=== PATIENT | male | born 1965 | race Caucasian/White ===

== ENCOUNTER 2019-09-14 09:48 | Outpatient (CLI) | payer OTHER, SELFPAY ==
[2019-09-14 10:29] LABS: Basophils Absolute Auto 0.1 K/mm3 (0.0-0.1); Eosinophils Absolute Auto 0.1 K/mm3 (0-0.3); Eosinophils Percent Auto 1.8 % (0-4.4); Hematocrit 50.9 % (42.0-52.0); Hemoglobin 16.9 g/dL (14.0-18.0); Immature Granulocyte Absolute 0.02 K/mm3 (0.00-0.031); Immature Granulocyte Percent A 0.4 % (0-0.5); Lymphocytes Absolute Auto 1.27 K/mm3 (0.9-3.2); Lymphocytes Percent Auto 24.9 % (18.3-44.2); Mean Corpuscular HGB Conc 33.2 g/dl (32-36); Mean Corpuscular Hemoglobin 29.4 pg (26-34); Mean Corpuscular Volume 88.5 fl (80-100); Mean Platelet Volume 9.7 fl (7.4-10.4); Monocytes Absolute Auto 0.4 K/mm3 (0.1-0.6); Monocytes Percent Auto 8.2 % (2.6-8.5); Neutrophils Absolute Auto 3.3 K/mm3 (1.3-6.7); Neutrophils Percent Auto 63.7 % (45.5-73.1); Platelet Count Result 194 k/mm3 (150-375); Red Blood Count 5.75 M/mm3 (4.6-6.20); Red Cell Distribution Width 12.9 % (11.5-14.5); White Blood Count 5.1 K/mm3 (4.5-10.0)
[2019-09-14 10:43] LABS: Alanine Aminotransferase 38 U/L (4-50); Albumin Level 4.3 g/dL (3.5-5.1); Alkaline Phosphatase 90 U/L (38-126); Aspartate Amino Transferase 25 U/L (17-59); Bilirubin,Total 0.6 mg/dL (0.2-1.3); Blood Urea Nitrogen 10 mg/dL (9-20); Carbon Dioxide 27 mmol/L (22-30); Chloride 106 mmol/L (98-107); Cholesterol 182 mg/dL (0-200); Estimated Glomerular Filt Rate > 60; Glucose 94 mg/dL (75-110); HDL Direct 36 mg/dL; Potassium 4.3 mmol/L (3.4-5.0); Sodium 139 mmol/L (137-145); Triglycerides 146 mg/dL (<150); Uric Acid 5.8 mg/dL (3.5-8.5)
[2019-09-14 10:54] LABS: LDL Cholesterol Direct 125 mg/dL
== END 2019-09-14 09:49 | disposition home or self-care (01) ==
PROVIDERS: PCP Family Medicine; Visit Provider Family Medicine
DX: I10 Essential (primary) hypertension (principal); E78.2 Mixed hyperlipidemia; Z12.5 Encounter for screening for malignant neoplasm of prostate
CPT/HCPCS: 36415; 80053; 80061; 84153; 84439; 84443; 84480; 84550; 85025; G0103

== ENCOUNTER 2019-12-09 14:58 | Emergency (ER) | payer OTHER, SELFPAY ==
[2019-12-09 15:11] VITALS: BP 132/94; PULSE 65; RESP 20; TEMP 36.6; O2SAT 97
--- NOTE | 2019-12-09 15:17 | ED.EAR ---
HPI - Ear Problem General Chief complaint: Ear Stated complaint: ear pain Time Seen by Provider: 12/09/19 15:02 Source: patient Mode of arrival: ambulatory Limitations: no limitations History of Present Illness HPI Narrative: 53-year-old male presents to [facility] with complaints of right ear pain since this morning. Patient reports history of ear infections. Patient denies ear drainage, cough, runny nose, nasal congestion, shortness of breath, wheezing, fever, bites, chills, nausea, vomiting or diarrhea. Patient denies sick contacts. Patient denies recent travel. MD Complaint: ear pain Location: right ear Duration: constant Exacerbating factors: nothing Discharge from ear: Reports no Treatment prior to arrival: none Related Data Home Medications Medication Instructions Recorded Confirmed atorvastatin 10 mg PO DAILY 12/09/19 12/09/19 metoprolol succinate 50 mg PO DAILY 12/09/19 12/09/19 Allergies Allergy/AdvReac Type Severity Reaction Status Date / Time No Known Allergies Allergy Unknown Verified 12/09/19 15:13 Review of Systems Review of Systems: All systems reviewed & are unremarkable except as noted in HPI and below Constitutional: Constitutional: Denies chills, Denies fatigue, Denies fever(s) and Denies weakness ENT: Denies dysphagia, Denies dizziness, Denies epistaxis, Denies nasal congestion and Denies sore throat Comments: right ear pain Cardiovascular: Cardiovascular: Denies chest pain, Denies rapid heart rate, Denies radiating jaw, neck or arm pain and Denies slow heart rate Respiratory: Respiratory: Denies chest congestion, Denies cough, Denies dyspnea and Denies wheezing Gastrointestinal: Gastrointestinal: Denies abdominal pain, Denies constipation, Denies diarrhea, Denies nausea and Denies vomiting Musculoskeletal: Musculoskeletal: Denies back pain Neurologic: Denies vertigo, Denies focal weakness and Denies numbness Endocrine: Endocrine: Denies fatigue [facility] Past Medical History Medical History (Updated 12/09/19 @ 15:22 by Blaire Valderrama APRN) Hypercholesteremia Hypertension Family History Family History Mother Hypertension Social History Social History Smoking status: Never smoker Exam Const: General: healthy appearing and no acute distress Orientation/consciousness: patient oriented x3 HENMT: Ears: external ears normal and TM abnormal bulging on the right and with fluid behind the TM on the right General nose exam: Normal nares present Face and sinus: normal facial exam Mouth: Yes Normal oral and palatal mucosa present and Yes moist mucous membranes Teeth and gingiva: dentition normal Throat: uvula midline Neck: Neck: normal visual inspection Resp: Effort & Inspection: normal respiratory effort Auscultation: clear to auscultation bilaterally Cardio: Rate: regular rate, not bradycardic and not tachycardic Rhythm: regular rhythm and regular rhythm Skin: General skin exam: normal color Rashes: no rashes Wounds: no wounds Neuro: General: patient oriented x3, moves all extremities and no meningeal signs Extrem: General: normal to inspection Psych: Mental Status: mental status grossly normal Affect: normal affect Attitude: cooperative Thought content: Yes Normal thought content present Course Vital Signs Vital signs: Vital Signs Temperature 36.6 C 12/09/19 15:11 Pulse Rate 65 12/09/19 15:11 Respiratory Rate 12/09/19 15:11 Blood Pressure 132/94 H 12/09/19 15:11 Pulse Oximetry 97 12/09/19 15:11 Temperature 36.6 C 12/09/19 15:11 Pulse Rate 65 12/09/19 15:11 Respiratory Rate 20 12/09/19 15:11 Blood Pressure 132/94 H 12/09/19 15:11 Pulse Oximetry 97 12/09/19 15:11 Medical Decision Making MDM Narrative Medical decision making narrative: Patient agrees to use [id number] Flonase daily. Patient agree
== END 2019-12-09 15:29 | disposition home or self-care (01) ==
PROVIDERS: Emergency Provider Nurse Practitioner Family; PCP Family Medicine
DX: H66.91 Otitis media, unspecified, right ear (principal); E78.00 Pure hypercholesterolemia, unspecified; I10 Essential (primary) hypertension
CPT/HCPCS: 99213; G0463

== ENCOUNTER 2020-02-23 10:21 | Emergency (ER) | payer OTHER, SELFPAY ==
[2020-02-23 10:30] VITALS: BP 153/97; PULSE 59; RESP 18; TEMP 36.8; O2SAT 99
--- NOTE | 2020-02-23 10:48 | ED.EAR ---
HPI - Ear Problem General Chief complaint: Ear Stated complaint: ear pain Source: patient Mode of arrival: ambulatory Limitations: no limitations History of Present Illness HPI Narrative: Patient is a 54-year-old male who presents complaining of left ear pain. Patient reports left ear pain x3 days. Denies taking any [id number] medications at this time. Patient reports multiple ear infections in the past few years. He has not seen ENT as of this time. Related Data Home Medications Medication Instructions Recorded Confirmed atorvastatin 10 mg PO DAILY 12/09/19 02/23/20 metoprolol succinate 50 mg PO DAILY 12/09/19 02/23/20 Allergies Allergy/AdvReac Type Severity Reaction Status Date / Time No Known Allergies Allergy Unknown Verified 12/09/19 15:13 Review of Systems Review of Systems: Narrative: CONSTITUTIONAL: Denies fever, chills, or sweats. EYES: Denies visual changes, redness, or discharge. ENT: Left ear pain CARDIOVASCULAR: Denies chest pain, palpitations, or edema. RESPIRATORY: Denies cough or dyspnea. GASTROINTESTINAL: Denies abdominal pain, nausea, vomiting, or diarrhea. GENITOURINARY: Denies dysuria or hematuria. SKIN: Denies rash or itching. MUSCULOSKELETAL: Denies back pain, joint pain, or myalgia. NEUROLOGIC: Denies headache, numbness, dizziness, or weakness. PSYCHIATRIC: Denies anxiety or depression. PMFSH Past Medical History Medical History Hypercholesteremia Hypertension Family History Family History Mother Hypertension Social History Social History Smoking status: Never smoker Gender identity (if verbalized by the patient): Male Exam Narrative: Exam Narrative: GENERAL: Well-appearing, well-nourished, and in no acute distress. HEAD: Normocephalic, atraumatic. EYES:No redness or drainage. Conjunctiva are normal. ENT: Mucous membranes pink and moist. Nares clear. Left TM cloudy, bulging, injected, right TM normal. Throat normal. Uvula midline. NECK: AROM. Supple. No lymphadenopathy. CHEST: No respiratory distress. EXTREMITIES: Normal range of motion. SKIN: Warm, dry, no rash. NEURO: No focal deficits. Alert and oriented x3. Gait steady. PSYCH: Normal affect. No signs of depression or anxiety. Course Vital Signs Vital signs: Vital Signs Temperature 36.8 C 02/23/20 10:30 Pulse Rate 59 L 02/23/20 10:30 Respiratory Rate 18 02/23/20 10:30 Blood Pressure 153/97 H 02/23/20 10:30 Pulse Oximetry 99 02/23/20 10:30 Temperature 36.8 C 02/23/20 10:30 Pulse Rate 59 L 02/23/20 10:30 Respiratory Rate 18 02/23/20 10:30 Blood Pressure 153/97 H 02/23/20 10:30 Pulse Oximetry 99 02/23/20 10:30 Medical Decision Making MDM Narrative Medical decision making narrative: Patient has left otitis media. Started on amoxicillin at this time. Patient also instructed to take Flonase and [id number] allergy relief as well. Discussed with patient follow-up with ENT as he has had frequent ear infections in the past few years. Patient is stable for discharge to home with outpatient follow-up as directed Differential Diagnosis Differential Diagnosis: Otitis media, otitis externa, cerumen impaction, URI Medical Records Medical records reviewed: Yes I reviewed the patient's medical records. Vital Signs Vital Signs: Vital Signs Temperature 36.8 C 02/23/20 10:30 Pulse Rate 59 L 02/23/20 10:30 Respiratory Rate 18 02/23/20 10:30 Blood Pressure 153/97 H 02/23/20 10:30 Pulse Oximetry 99 02/23/20 10:30 Temperature 36.8 C 02/23/20 10:30 Pulse Rate 59 L 02/23/20 10:30 Respiratory Rate 18 02/23/20 10:30 Blood Pressure 153/97 H 02/23/20 10:30 Pulse Oximetry 99 02/23/20 10:30 Reviewed. Patient has been instructed to follow-up with his PCP regarding his blood pressure
== END 2020-02-23 10:53 | disposition home or self-care (01) ==
PROVIDERS: Emergency Provider Nurse Practitioner; PCP Family Medicine
DX: H66.92 Otitis media, unspecified, left ear (principal); E78.00 Pure hypercholesterolemia, unspecified; I10 Essential (primary) hypertension
CPT/HCPCS: 99213; G0463

== ENCOUNTER 2021-01-17 10:40 | Outpatient (CLI) | payer OTHER, SELFPAY ==
[2021-01-17 11:38] LABS: Basophils Absolute Auto 0.1 K/mm3 (0.0-0.1); Basophils Percent Auto 1.1 % (0.2-1.2); Eosinophils Absolute Auto 0.1 K/mm3 (0-0.3); Eosinophils Percent Auto 1.5 % (0-4.4); Hematocrit 51.4 % (42.0-52.0); Hemoglobin 17.3 g/dL (14.0-18.0); Immature Granulocyte Absolute 0.05 K/mm3 (0.00-0.031); Immature Granulocyte Percent A 0.8 % (0-0.5); Lymphocytes Absolute Auto 1.59 K/mm3 (0.9-3.2); Lymphocytes Percent Auto 24.4 % (18.3-44.2); Mean Corpuscular HGB Conc 33.7 g/dl (32-36); Mean Corpuscular Volume 89.1 fl (80-100); Monocytes Absolute Auto 0.5 K/mm3 (0.1-0.6); Monocytes Percent Auto 7.2 % (2.6-8.5); Neutrophils Absolute Auto 4.2 K/mm3 (1.3-6.7); Platelet Count Result 218 k/mm3 (150-375); Red Blood Count 5.77 M/mm3 (4.6-6.20); White Blood Count 6.5 K/mm3 (4.5-10.0)
[2021-01-17 11:53] LABS: Alanine Aminotransferase 66 U/L (4-50); Albumin Level 4.2 g/dL (3.5-5.1); Alkaline Phosphatase 92 U/L (38-126); Anion Gap 6 mmol/L (8-16); Aspartate Amino Transferase 28 U/L (17-59); Blood Urea Nitrogen 14 mg/dL (9-20); Calcium 9.2 mg/dL (8.4-10.2); Carbon Dioxide 28 mmol/L (22-30); Chloride 106 mmol/L (98-107); Cholesterol 182 mg/dL (0-200); Estimated Glomerular Filt Rate > 60; Glucose 92 mg/dL (65-110); HDL Direct 38 mg/dL; Potassium 4.7 mmol/L (3.4-5.0); Sodium 140 mmol/L (137-145); Triglycerides 182 mg/dL (<150); Uric Acid 6.8 mg/dL (3.5-8.5)
[2021-01-17 12:05] LABS: LDL Cholesterol Direct 115 mg/dL
[2021-01-17 12:25] LABS: Prostate Specific Antigen 1.6 ng/mL (< OR = 4.0)
== END 2021-01-17 10:41 | disposition home or self-care (01) ==
LOC: ANHLAB 10:42
PROVIDERS: PCP Family Medicine; Visit Provider Family Medicine
DX: Z12.5 Encounter for screening for malignant neoplasm of prostate (principal); E78.2 Mixed hyperlipidemia; F41.9 Anxiety disorder, unspecified
CPT/HCPCS: 36415; 80053; 80061; 84153; 84443; 84550; 85025; G0103

== ENCOUNTER 2021-03-06 08:32 | Outpatient (CLI) | payer OTHER, SELFPAY ==
[2021-03-06 09:16] LABS: Alanine Aminotransferase 49 U/L (4-50); Albumin Level 4.2 g/dL (3.5-5.1); Alkaline Phosphatase 92 U/L (38-126); Aspartate Amino Transferase 27 U/L (17-59); Bilirubin,Total 0.9 mg/dL (0.2-1.3)
== END 2021-03-06 08:33 | disposition home or self-care (01) ==
PROVIDERS: PCP Family Medicine; Visit Provider Family Medicine
DX: R74.01 Elevation of levels of liver transaminase levels (principal)
CPT/HCPCS: 36415; 80076

== ENCOUNTER 2021-07-25 16:40 | Emergency (ER) | payer OTHER, SELFPAY ==
[2021-07-25 16:47] VITALS: BP 122/86; PULSE 55; RESP 16; TEMP 36.2; O2SAT 98
--- NOTE | 2021-07-25 16:49 | ED.EAR ---
HPI - Ear Problem General Chief complaint: Ear Stated complaint: Rt Ear Pain Time Seen by Provider: 07/25/21 16:51 Source: patient Mode of arrival: ambulatory Limitations: no limitations History of Present Illness HPI Narrative: 55-year-old male presented complaint of right ear pain for 3 days. He states the pain is sharp and stabbing, intermittent, rating 8 out of 10 when it does occur. He denies associated dizziness, tinnitus, dental pain, pain with swallowing, sinus pressure or congestion, fevers or chills. Endorses a history of recurrent ear infections as an adult, he has seen an ENT specialist. Last infection was approximately 6 months ago. He has taken Tylenol and ibuprofen for pain. He endorses about a week ago his left ear felt similar pain but resolved on its own after couple of days. MD Complaint: ear pain Related Data Home Medications Medication Instructions Recorded Confirmed atorvastatin 10 mg PO DAILY 12/09/19 07/25/21 metoprolol succinate 50 mg PO DAILY 12/09/19 07/25/21 Allergies Allergy/AdvReac Type Severity Reaction Status Date / Time No Known Allergies Allergy Unknown Verified 07/25/21 16:44 Review of Systems Review of Systems: CONSTITUTIONAL: Denies malaise, chills, or fever. EYES: Denies visual changes, redness, or discharge. ENT: Denies rhinorrhea, congestion, sinus pain, and sore throat. Reports ear pain CARDIOVASCULAR: Denies chest pain, palpitations, or edema. RESPIRATORY: Denies cough or dyspnea. GASTROINTESTINAL: Denies abdominal pain, nausea, vomiting, diarrhea SKIN: Denies rash or itching. MUSCULOSKELETAL: Denies myalgia. NEUROLOGIC: Denies headache. All systems reviewed & are unremarkable except as noted in HPI and below PMFSH Past Medical History Medical History Hypercholesteremia Hypertension Family History Family History Mother Hypertension Social History Social History Smoking status: Never smoker Gender identity (if verbalized by the patient): Male Comments At time of signature, agree with nursing past medical, surgical, social and family history. There is no relevant family history pertinent to the presenting complaint Exam Narrative: GENERAL: Well-appearing HEAD: Normocephalic EYES: conjunctivae clear ENT: Nares clear. Mucous membranes moist. TMs pearly haskins with normal light reflex bilaterally, no erythema or purulence; no tragal or eustachian tube tenderness Oropharynx not erythematous without lesions. No lymphadenopathy. CHEST: Clear to auscultation, breath sounds equal. No wheezing, rhonchi, rales, or stridor. HEART: Regular rate and rhythm. No murmur heard. SKIN: Warm, dry, no rash. NEURO: Alert and oriented x3. PSYCH: Normal mood and affect Course Course Emergency Course: Patient is aware of diagnosis, understands and agrees to treatment plan. Anticipatory guidance given. Patient agrees to follow-up as directed and is aware of reasons to seek care at the emergency department. Portions of this record may have been created with voice recognition software Level of Care: Express Care Visit Vital Signs Vital signs: Vital Signs Temperature 97.2 F L 07/25/21 16:47 Pulse Rate 55 L 07/25/21 16:47 Respiratory Rate 16 07/25/21 16:47 Blood Pressure 122/86 07/25/21 16:47 Pulse Oximetry 98 07/25/21 16:47 Temperature 97.2 F L 07/25/21 16:47 Pulse Rate 55 L 07/25/21 16:47 Respiratory Rate 16 07/25/21 16:47 Blood Pressure 122/86 07/25/21 16:47 Pulse Oximetry 98 07/25/21 16:47 Reviewed Medical Decision Making MDM Narrative Medical decision making narrative: Exam findings show no acute concerns; patient is non-toxic appearing and is in no distress. He has an ENT and PCP he can follow-up with, but states it can be done to get in. Antibiotic will be prescribed,
== END 2021-07-25 17:02 | disposition home or self-care (01) ==
PROVIDERS: Emergency Provider Nurse Practitioner Family; PCP Family Medicine
DX: H92.01 Otalgia, right ear (principal); E78.00 Pure hypercholesterolemia, unspecified; I10 Essential (primary) hypertension
CPT/HCPCS: 99213; G0463

== ENCOUNTER 2022-06-07 08:58 | Outpatient (CLI) | payer OTHER, SELFPAY ==
[2022-06-07 09:50] LABS: Basophils Absolute Auto 0.1 K/mm3 (0.0-0.1); Basophils Percent Auto 0.9 % (0.2-1.2); Eosinophils Absolute Auto 0.1 K/mm3 (0-0.3); Eosinophils Percent Auto 1.7 % (0-4.4); Hematocrit 50.6 % (42.0-52.0); Hemoglobin 17.2 g/dL (14.0-18.0); Immature Granulocyte Absolute 0.03 K/mm3 (0.00-0.031); Immature Granulocyte Percent A 0.6 % (0-0.5); Lymphocytes Absolute Auto 1.32 K/mm3 (0.9-3.2); Lymphocytes Percent Auto 24.4 % (18.3-44.2); Mean Corpuscular Hemoglobin 29.4 pg (26-34); Mean Corpuscular Volume 86.5 fl (80-100); Mean Platelet Volume 9.1 fl (7.4-10.4); Monocytes Absolute Auto 0.5 K/mm3 (0.1-0.6); Monocytes Percent Auto 9.1 % (2.6-8.5); Neutrophils Absolute Auto 3.4 K/mm3 (1.3-6.7); Neutrophils Percent Auto 63.3 % (45.5-73.1); Platelet Count Result 225 k/mm3 (150-375); Red Blood Count 5.85 M/mm3 (4.6-6.20); Red Cell Distribution Width 12.9 % (11.5-14.5); White Blood Count 5.4 K/mm3 (4.5-10.0)
[2022-06-07 09:51] LABS: Alanine Aminotransferase 52 U/L (6-50); Albumin Level 4.3 g/dL (3.5-5.1); Alkaline Phosphatase 92 U/L (38-126); Anion Gap 3 mmol/L (8-16); Aspartate Amino Transferase 29 U/L (17-59); Bilirubin,Total 1.2 mg/dL (0.2-1.3); Blood Urea Nitrogen 16 mg/dL (9-20); Calcium 8.9 mg/dL (8.4-10.2); Carbon Dioxide 27 mmol/L (22-30); Chloride 109 mmol/L (98-107); Cholesterol 188 mg/dL (0-200); Estimated Glomerular Filt Rate > 60; Glucose 98 mg/dL (65-110); HDL Direct 34 mg/dL; Potassium 4.1 mmol/L (3.4-5.0); Sodium 139 mmol/L (137-145); Triglycerides 153 mg/dL (<150); Uric Acid 6.6 mg/dL (3.5-8.5)
[2022-06-07 10:02] LABS: LDL Cholesterol Direct 118 mg/dL
[2022-06-07 10:20] LABS: Prostate Specific Antigen 1.4 ng/mL (< OR = 4.0)
== END 2022-06-07 08:59 | disposition home or self-care (01) ==
LOC: ANHLAB 09:01
PROVIDERS: PCP Family Medicine; Visit Provider Family Medicine
DX: I10 Essential (primary) hypertension (principal); E78.2 Mixed hyperlipidemia; F41.9 Anxiety disorder, unspecified; Z12.5 Encounter for screening for malignant neoplasm of prostate
CPT/HCPCS: 36415; 80053; 80061; 84153; 84443; 84550; 85025; G0103

== ENCOUNTER 2022-07-15 01:23 | Day surgery (SDC) | payer OTHER, SELFPAY ==
[2022-07-03 14:42] VITALS: BMI 26.4
[2022-07-15 06:27] VITALS: BP 147/101; PULSE 65; RESP 18; TEMP 36.1; O2SAT 97
[2022-07-15] MEDS: LACTATED RINGERS 1,000 ML 150 ML IV CONT (06:28)
--- NOTE | 2022-07-15 07:19 | P.PNAN_ITS ---
Anes - Initial Pre Proc Eval Procedure: Operation Date: 07/15/22 07:30 Proposed Procedures p Colonoscopy - Zeke Reese MD Date/Time: 07/15/22 07:19 Surgeon: Zeke Reese MD Pre Op Diagnosis: hx colon polyps Patient Data Age: 56 Gender: M Height: 1.83 m Weight: 92.3 kg Last Vital Signs Temp 97 F L 07/15/22 06:27 Pulse 65 07/15/22 06:27 Resp 18 07/15/22 06:27 BP 147/101 H 07/15/22 06:27 Pulse Ox 97 07/15/22 06:27 O2 Del Method Room Air 07/15/22 06:27 Allergies Allergy/AdvReac Type Severity Reaction Status Date / Time No Known Allergies Allergy Unknown Verified 07/15/22 06:25 Home Medications Medication Instructions Recorded Confirmed Type atorvastatin 10 mg tablet 10 mg PO DAILY 12/09/19 07/15/22 History metoprolol succinate 50 mg capsule 50 mg PO DAILY 12/09/19 07/15/22 History sprinkle, ext. release 24 hr Patient hx anesthesia problems: none Family hx anesthesia problems: none Results Review: All pre-operative results and documents have been reviewed as part of the pre- operative evaluation. [facility] Past Medical History Medical History Hypercholesteremia Hypertension Family History Family History Mother Hypertension Social History Social History Smoking status: Never smoker Alcohol intake: never Substance use: never Substance use type: does not use Living arrangements: with family Gender identity (if verbalized by the patient): Male Spiritual care concerns: No Anes - Eval Final PreProcedure Day of Procedure 07/15/22 07:19 Patient weight: normal Heart: regular rate and rhythm Lungs: clear to auscultation Airway: Mallampati scale class II Neurological: alert and oriented Last oral intake: >/= 8 hours ASA classification: II Emergent: no Anesthetic plan: proceed Anesthesia type and monitoring: general GIVS and standard monitoring Results Review: All pre-operative results and documents have been reviewed as part of the pre- operative evaluation. Informed Consent: The patient's anesthetic plan and its attendant risks and benefits were discussed with the patient/family/POA. Questions were solicited and answers provided to the satisfaction of the patient/family/POA.
--- NOTE | 2022-07-15 07:24 | PM.HPGS ---
History of Present Illness History of Present Illness Consent: Risks, benefits, and alternatives have been discussed and questions answered. Patient agrees to proceed with procedure. Chief complaint: hx colon polyps Narrative: Edil Dangelo is a 56 year old male with colon polyp in 2016 Review of Systems Constitutional: Constitutional: Denies headache(s) and Denies weakness Eyes: Eyes: Denies blurry vision ENT: Reports Normal hearing present, Denies headache(s) and Denies neck pain Cardiovascular: Cardiovascular: Denies chest pain and Denies dyspnea Respiratory: Respiratory: Denies dyspnea Gastrointestinal: Gastrointestinal: Reports no additional gastrointestinal complaints Genitourinary: Genitourinary: Denies dysuria Musculoskeletal: Musculoskeletal: Denies neck pain Integumentary/Breasts: Skin/Breast: Denies dry skin Neurologic: Reports Normal hearing present, Denies headache(s) and Denies weakness Psychiatric: Psychiatric: Denies anxiety Endocrine: Endocrine: Denies change in body appearance Hematologic/Lymphatic: Hematologic/Lymphatic: Denies easy bleeding Allergic/Immunologic: Allergic/Immunologic: Denies urticaria [facility] Past Medical History Medical History (Updated 07/15/22 @ 07:24 by Zeke Reese MD) Adenomatous colon polyp Hypercholesteremia Hypertension Family History Family History Mother Hypertension Social History Social History Smoking status: Never smoker Alcohol intake: never Substance use: never Substance use type: does not use Living arrangements: with family Gender identity (if verbalized by the patient): Male Spiritual care concerns: No Meds Home Medications and Allergies Home Medications Medication Instructions Recorded Confirmed Type atorvastatin 10 mg tablet 10 mg PO DAILY 12/09/19 07/15/22 History metoprolol succinate 50 mg capsule 50 mg PO DAILY 12/09/19 07/15/22 History sprinkle, ext. release 24 hr Allergies Allergy/AdvReac Type Severity Reaction Status Date / Time No Known Allergies Allergy Unknown Verified 07/15/22 06:25 Vital Signs Vital Signs - 24 hr 07/15/22 06:27 Temperature 97 F L Pulse Rate 65 Respiratory Rate 18 Blood Pressure 147/101 H Pulse Oximetry 97 Oxygen Delivery Room Air Exam Const: General: comfortable and no acute distress HENMT: Face/Nose/Sinus: Normal nares present Eyes: General: appearance normal, both eyes and all related structures Neck: Neck: no JVD Resp: Auscultation: clear to auscultation bilaterally Cardio: Rate: regular rate Rhythm: regular rhythm GI: Inspection: non-distended GI Palp: Yes Soft to palpation Skin: General skin exam: normal color Neuro: General: gait normal Speech: normal speech Extrem: General: normal to inspection Psych: Mental Status: mental status grossly normal Assessment and Plan Assessment and plan (1) Adenomatous colon polyp: Code(s): D12.6 - Benign neoplasm of colon, unspecified Status: Acute Assessment and Plan: colonoscopy
[2022-07-15 07:44] VITALS: BP 107/71; PULSE 63; RESP 21; O2SAT 95
[2022-07-15 07:54] VITALS: BP 117/84; PULSE 61; RESP 15; O2SAT 100
[2022-07-15 08:04] VITALS: BP 122/82; PULSE 58; RESP 20; O2SAT 100
== END 2022-07-15 08:16 | disposition home or self-care (01) ==
PROVIDERS: PCP Family Medicine; Visit Provider Internal Medicine Gastroenterology
PROC: 0DJD8ZZ Inspection of Lower Intestinal Tract, Via Natural or Artificial Opening Endoscopic (ICD-10-PCS; CPT 45378; principal; 2022-07-15 07:30)
DX: Z12.11 Encounter for screening for malignant neoplasm of colon (principal); K57.30 Diverticulosis of large intestine without perforation or abscess without bleeding; K63.5 Polyp of colon; K64.8 Other hemorrhoids; I10 Essential (primary) hypertension; E78.00 Pure hypercholesterolemia, unspecified
CPT/HCPCS: 45380; 88305; J2704; J7120

== ENCOUNTER 2022-07-15 08:41 | Emergency (ER) | payer OTHER, SELFPAY ==
[2022-07-15 08:46] VITALS: BP 143/94; PULSE 59; RESP 16; TEMP 36.3; O2SAT 98
--- NOTE | 2022-07-17 14:11 | ED.EAR ---
HPI - Ear Problem General Chief complaint: Ear Stated complaint: Lt Ear Irritation Time Seen by Provider: 07/15/22 08:50 Source: patient Mode of arrival: ambulatory Limitations: no limitations History of Present Illness HPI Narrative: 56-year-old male presents with complaint of severe pain to left ear for 1 day. Reports muffled. Denies drainage. No recent swimming. No history of frequent ear infections. No other symptoms. Unable to take any [id number] medications to treat pain due to colonoscopy this morning. All systems reviewed and negative except as noted above. Related Data Home Medications Medication Instructions Recorded Confirmed atorvastatin 10 mg tablet 10 mg PO DAILY 12/09/19 07/15/22 metoprolol succinate 50 mg capsule 50 mg PO DAILY 12/09/19 07/15/22 sprinkle, ext. release 24 hr Allergies Allergy/AdvReac Type Severity Reaction Status Date / Time No Known Allergies Allergy Unknown Verified 07/15/22 08:44 Review of Systems Review of Systems: CONSTITUTIONAL: Denies fever, chills, or sweats. EYES: Denies visual changes, redness, or discharge. ENT: Denies rhinorrhea, congestion, sore throat . Reports left ear pain. CARDIOVASCULAR: Denies chest pain, palpitations, or edema. RESPIRATORY: Denies cough or dyspnea. GASTROINTESTINAL: Denies abdominal pain, nausea, vomiting, or diarrhea. GENITOURINARY: Denies dysuria or hematuria. SKIN: Denies rash or itching. MUSCULOSKELETAL: Denies back pain, joint pain, or myalgia. NEUROLOGIC: Denies headache, numbness, or weakness. PSYCHIATRIC: Denies anxiety or depression. All other systems reviewed are negative, except as documented in HPI. [facility] Past Medical History Medical History (Updated 07/16/22 @ 00:01 by Eagle Richardson) Adenomatous colon polyp Hypercholesteremia Hypertension Family History Family History Mother Hypertension Social History Social History Smoking status: Never smoker Alcohol intake: never Substance use: never Substance use type: does not use Living arrangements: with family Gender identity (if verbalized by the patient): Male Spiritual care concerns: No Comments At time of signature, agree with nursing past medical, surgical, social and family history. There is no relevant family history pertinent to the presenting complaint. Exam Narrative: GENERAL: This is a well-nourished, well-developed patient, in no apparent distress. HEAD: normocephalic, atraumatic. EYES: PERRL. Sclera clear/white. Vision is grossly intact. EARS: External ears normal, auditory canals clear and without drainage, Right TM normal. Left TM is erythematous with purulent fluid. no perforation bilaterally. NOSE: External nose normal with no obvious nasal discharge, nares without redness, no rhinorrhea. THROAT: Mucous membranes moist, posterior pharynx clear. NECK: Neck supple, non-tender without lymphadenopathy, masses or thyromegaly. CARDIOVASCULAR: Regular rate and rhythm without murmurs, gallops, or rubs. RESPIRATORY: Clear to auscultation. Breath sounds equal bilaterally. No wheezes, rales, or rhonchi. SKIN: warm, Dry, intact with no suspicious lesions or rash, good texture and turgor. NEURO: awake, alert, and oriented to person, place and time. There were no obvious focal neurologic abnormalities. EXTREMITIES: No joint tenderness, effusion, or edema noted. Course Course Level of Care: Express Care Visit Vital Signs Vital signs: Vital Signs Temperature 36.3 C L 07/15/22 08:46 Pulse Rate 59 L 07/15/22 08:46 Respiratory Rate 16 07/15/22 08:46 Blood Pressure 143/94 H 07/15/22 08:46 Pulse Oximetry 98 07/15/22 08:46 Oxygen Delivery Room Air 07/15/22 08:46 Temperature 36.3 C L 07/15/22 08:46 Pulse Rate 59 L 07/15/22 08:46 Respiratory Rate 16 07/15/22 08:46 Blood Pr
== END 2022-07-15 08:58 | disposition home or self-care (01) ==
PROVIDERS: Emergency Provider Nurse Practitioner Family; PCP Family Medicine
DX: H65.02 Acute serous otitis media, left ear (principal); E78.00 Pure hypercholesterolemia, unspecified; I10 Essential (primary) hypertension
CPT/HCPCS: 99213; G0463

== ENCOUNTER 2022-07-19 09:14 | Outpatient (CLI) | payer OTHER, SELFPAY ==
[2022-07-19 10:14] LABS: Alanine Aminotransferase 45 U/L (6-50); Albumin Level 4.2 g/dL (3.5-5.1); Alkaline Phosphatase 81 U/L (38-126); Aspartate Amino Transferase 26 U/L (17-59); Bilirubin,Total 1.1 mg/dL (0.2-1.3); Cholesterol 170 mg/dL (0-200); HDL Direct 34 mg/dL; Triglycerides 147 mg/dL (<150); Uric Acid 6.1 mg/dL (3.5-8.5)
[2022-07-19 10:25] LABS: LDL Cholesterol Direct 111 mg/dL
[2022-07-19 18:23] LABS: Prostate Specific Antigen 1.1 ng/mL (< OR = 4.0)
== END 2022-07-19 09:15 | disposition home or self-care (01) ==
LOC: ANHLAB 09:17
PROVIDERS: PCP Family Medicine; Visit Provider Family Medicine
DX: F41.9 Anxiety disorder, unspecified (principal); E78.2 Mixed hyperlipidemia; I10 Essential (primary) hypertension; Z12.5 Encounter for screening for malignant neoplasm of prostate; R74.01 Elevation of levels of liver transaminase levels
CPT/HCPCS: 36415; 80061; 80076; 84153; 84550; G0103

== ENCOUNTER 2022-10-09 10:00 | Outpatient (CLI) | payer OTHER, SELFPAY ==
--- NOTE | ~2022-10-09 | XR_ITS ---
AP view of the pelvis and AP and lateral views of the left hip Clinical history: Pain Findings: No acute fracture or dislocation is seen. Osseous alignment is anatomic. Bilateral hip and SI joint spaces are preserved. Soft tissues are unremarkable. Impression: No significant abnormality is seen. Reviewed, dictated and finalized at [facility]. Impression: No significant abnormality is seen.
== END 2022-10-09 10:01 | disposition home or self-care (01) ==
PROVIDERS: PCP Family Medicine; Visit Provider Orthopaedic Surgery
DX: M25.552 Pain in left hip (principal)
CPT/HCPCS: 73502

== ENCOUNTER → 2023-01-09 13:23 | Outpatient (CLI) | payer OTHER, SELFPAY ==
--- NOTE | ~2023-01-09 | MR_ITS ---
EXAMINATION: MR lumbar spine wo con DATE: 01/09/2023 13:50 INDICATION: Radiculopathy, lumbar region. TECHNIQUE: Magnetic resonance imaging (MRI) of the lumbar spine was performed without intravenous con trast. Sequences included sagittal T2-weighted FSE, sagittal T2-weighted FS FSE, sagittal T1-weighted FSE, and axial T2-weighted FSE. COMPARISON: None FINDINGS: There is 6 degrees levocurvature of lumbar spine. Vertebral body heights are normal. There is mildly decreased disc height at L2-L3, L3-L4 and L4-L5. The distal spinal cord signal intensity is normal. The conus medullaris is at L1. The following disc levels are specifically discussed: L1-L2: The disc does not extend beyond the endplate margin. There is mild bilateral facet joint osteo arthritis. There is no neural foraminal stenosis. There is no central canal stenosis. L2-L3: The disc is bulging and has an annular fissure. There is mild bilateral facet joint osteoarthr itis. There is mild bilateral neural foraminal stenosis. There is mild central canal stenosis. L3-L4: The disc is bulging and has an annular fissure. There is mild bilateral facet joint osteoarthr itis. There is mild bilateral neural foraminal stenosis. There is mild central canal stenosis. L4-L5: The disc is bulging and has mass effect on left L5 nerve root in lateral recess. There is mild bilateral facet joint osteoarthritis. There is mild right and moderate left neural foraminal stenosi s. There is mild central canal stenosis. There is severe stenosis of left lateral recess. L5-S1: The disc is bulging and has an annular fissure. There is moderate bilateral facet joint osteoa rthritis. There is mild bilateral neural foraminal stenosis. There is mild central canal stenosis. IMPRESSION: 1. Bulging disc at L4-L5 with mass effect on left L5 nerve root and moderate left neural foraminal st enosis. Reviewed, dictated and finalized at location E. IMPRESSION: 1. Bulging disc at L4-L5 with mass effect on left L5 nerve root and moderate le ft neural foraminal stenosis.
== END ==
PROVIDERS: PCP Orthopaedic Surgery; Visit Provider Orthopaedic Surgery
DX: M51.36 Other intervertebral disc degeneration, lumbar region (principal); M48.061 Spinal stenosis, lumbar region without neurogenic claudication
CPT/HCPCS: 72148

== ENCOUNTER 2023-03-05 15:40 | Emergency (ER) | payer OTHER, SELFPAY ==
[2023-03-05 15:48] VITALS: BP 112/77; PULSE 53; RESP 18; TEMP 36.1; O2SAT 99
--- NOTE | 2023-03-05 16:05 | ED.EAR ---
HPI - Ear Problem General Chief complaint: Ear Stated complaint: Left Ear Irritation Time Seen by Provider: 03/05/23 15:53 Source: patient and RN notes reviewed Mode of arrival: ambulatory Limitations: no limitations History of Present Illness HPI Narrative: Patient presents today complaining of left ear pain since late last night. Denies sore throat, decreased hearing, drainage. Currently rates his pain 5/10 and has taken Tylenol without relief. Patient has history of ear infections in the past and states his pain today feels similar. Related Data Home Medications Medication Instructions Recorded Confirmed metoprolol succinate 50 mg capsule 100 mg PO DAILY 12/09/19 03/05/23 sprinkle, ext. release 24 hr amiodarone 200 mg tablet 200 mg PO DAILY 01/10/23 03/05/23 rosuvastatin 40 mg tablet 40 mg PO DAILY 01/10/23 03/05/23 Allergies Allergy/AdvReac Type Severity Reaction Status Date / Time No Known Allergies Allergy Unknown Verified 03/05/23 15:41 Review of Systems Review of Systems: CONSTITUTIONAL: Denies body aches, fever, chills, or sweats. EYES: Denies visual changes, redness, or discharge. ENT: Denies rhinorrhea, congestion, sore throat. + left ear pain CARDIOVASCULAR: Denies chest pain, palpitations, or edema. RESPIRATORY: Denies cough or dyspnea. GASTROINTESTINAL: Denies abdominal pain, nausea, vomiting, or diarrhea. GENITOURINARY: Denies dysuria or hematuria. SKIN: Denies rash, itching, or wounds. MUSCULOSKELETAL: Denies back pain, joint pain, or myalgia. NEUROLOGIC: Denies headache, numbness, tingling, or weakness. PSYCH: Denies depression or anxiety. [facility] Past Medical History Medical History Adenomatous colon polyp (~10/29/22) History of stress test Hypercholesteremia Hyperlipidemia Hypertension Family History Family History Mother Hypertension Social History Social History Smoking status: Never smoker Alcohol intake: never Substance use: never Substance use type: does not use Lack of Transportation: No Lack of Food: Never True Current Housing: I Have Housing Concerned About Future Housing: No Difficulty Paying Gas/Electric Bills: No Difficulty Paying for Meds: No Currently Unemployed: No Education: Bachelor's Degree Difficulty w/ Childcare or Family Care: No Living arrangements: with family Gender identity (if verbalized by the patient): Male Spiritual care concerns: No Comments At time of signature, I have reviewed and agree with nursing past medical, surgical, social and family history unless otherwise noted. Please see nursing chart for further information. There is no relevant family history pertinent to the presenting complaint Exam Narrative: GENERAL: Well-appearing, well-nourished, and in no acute distress. HEAD: Normocephalic, atraumatic. EYES: EOMI. No redness or drainage. Conjunctivae normal. ENT: Mucous membranes pink and moist. Nares clear. TMs normal bilaterally. NECK: Normal AROM. CHEST: No respiratory distress. EXTREMITIES: Normal range of motion. No edema. SKIN: Warm, dry, no rash. Capillary refill normal. Normal skin turgor. NEURO: No focal deficits. Alert and oriented x3. Gait steady. PSYCH: Normal affect. No signs of depression or anxiety. Course Course Level of Care: Express Care Visit Vital Signs Vital signs: Vital Signs Temperature 96.9 F L 03/05/23 15:48 Pulse Rate 53 L 03/05/23 15:48 Respiratory Rate 18 03/05/23 15:48 Blood Pressure 112/77 03/05/23 15:48 Pulse Oximetry 99 03/05/23 15:48 Oxygen Delivery Room Air 03/05/23 15:48 Temperature 96.9 F L 03/05/23 15:48 Pulse Rate 53 L 03/05/23 15:48 Respiratory Rate 18 03/05/23 15:48 Blood Pressure 112/77 03/05/23 15:48 Pulse Oximetry 99
== END 2023-03-05 16:08 | disposition home or self-care (01) ==
PROVIDERS: Emergency Provider Nurse Practitioner; PCP Family Medicine
DX: H92.02 Otalgia, left ear (principal); E78.00 Pure hypercholesterolemia, unspecified; E78.5 Hyperlipidemia, unspecified; I10 Essential (primary) hypertension
CPT/HCPCS: 99211; G0463

== ENCOUNTER 2023-09-23 09:50 | Emergency (ER) | payer OTHER, SELFPAY ==
[2023-09-23] VITALS (10 sets, daily range): BP systolic 137–138; BP diastolic 96–98; PULSE 54–64; RESP 13–19; TEMP 36.6; O2SAT 94–99
--- NOTE | ~2023-09-23 | XR_ITS ---
XR chest 2V Ordering provider: Imer Ríos MD History: 57 years Male with . LIGHTHEADED, CLAMY. HX TRIPLE BYPASS 12/07 . Comparison: None. FINDINGS: MEDIASTINUM: The cardiac silhouette is not enlarged. Postoperative changes in the mediastinum. LUNGS: No infiltrates, effusions or pneumothorax. OTHER: No free air under the diaphragm. Degenerative changes of the spine. IMPRESSION: No acute cardiopulmonary pathology. Reviewed, dictated and finalized at location A.
--- NOTE | 2023-09-23 09:55 | ECG_ITS ---
Test Date: 2023-09-23 10:05:31 Measurements Intervals [place] Rate: 53 P: 16 TX: 192 QRS: 13 QRSD: 105 T: 8 QT: 408 QTc: 386 Interpretive Statements SINUS BRADYCARDIA INFERIOR MYOCARDIAL INFARCTION , PROBABLY OLD BASELINE ARTIFACT- V5 ABNORMAL ECG No previous ECG available for comparison Electronically Signed On 09-23-2023 10:22:27 CDT by Shun Maldonado D.O.
[2023-09-23 10:21] LABS: Basophils Percent Auto 0.6 % (0.2-1.2); Eosinophils Absolute Auto 0.1 K/mm3 (0-0.3); Eosinophils Percent Auto 1.1 % (0-4.4); Hematocrit 48.6 % (42.0-52.0); Immature Granulocyte Absolute 0.01 K/mm3 (0.00-0.031); Immature Granulocyte Percent A 0.2 % (0-0.5); Lymphocytes Absolute Auto 1.18 K/mm3 (0.9-3.2); Lymphocytes Percent Auto 22.2 % (18.3-44.2); Mean Corpuscular HGB Conc 32.9 g/dl (32-36); Mean Corpuscular Hemoglobin 28.7 pg (26-34); Mean Corpuscular Volume 87.1 fl (80-100); Mean Platelet Volume 9.5 fl (7.4-10.4); Monocytes Absolute Auto 0.3 K/mm3 (0.1-0.6); Monocytes Percent Auto 5.6 % (2.6-8.5); Neutrophils Absolute Auto 3.7 K/mm3 (1.3-6.7); Neutrophils Percent Auto 70.3 % (45.5-73.1); Platelet Count Result 188 k/mm3 (150-375); Red Blood Count 5.58 M/mm3 (4.6-6.20); Red Cell Distribution Width 13.4 % (11.5-14.5); White Blood Count 5.3 K/mm3 (4.5-10.0)
[2023-09-23 10:33] LABS: Alanine Aminotransferase 28 U/L (6-50); Alkaline Phosphatase 75 U/L (38-126); Anion Gap 9 mmol/L (4-12); Aspartate Amino Transferase 22 U/L (17-59); Bilirubin,Total 0.7 mg/dL (0.2-1.3); Blood Urea Nitrogen 14 mg/dL (9-20); Calcium 8.7 mg/dL (8.4-10.2); Carbon Dioxide 24 mmol/L (22-30); Chloride 106 mmol/L (98-107); Estimated Glomerular Filt Rate > 60; Glucose 145 mg/dL (65-110); Lipase 81 U/L (23-300); Potassium 4.2 mmol/L (3.4-5.0); Sodium 139 mmol/L (137-145)
[2023-09-23 10:36] LABS: Prothrombin Time 13.1 Seconds (11.1-14.7)
[2023-09-23 10:37] LABS: Partial Thromboplastin Time 25.2 Seconds (22.3-36.8)
[2023-09-23] MEDS: ASPIRIN 81 MG CHEWABLE TABLET 324 MG PO (10:38)
[2023-09-23 10:44] LABS: Troponin I < 0.012 ng/mL (0.000-0.034)
--- NOTE | 2023-09-23 11:20 | ED.CHESTPAIN ---
HPI - Chest Pain General Chief Complaint: Chest Pain Stated Complaint: chest discomfort,syncopal Time Seen by Provider: 09/23/23 10:22 Source: patient Mode of arrival: ambulatory Limitations: no limitations History of Present Illness HPI narrative: This is a 57-year-old male, with history of coronary artery disease, status post CABG, who presents emergency department after a near syncopal episode. The patient states he was in his normal state of health, sitting at his desk, when he felt lightheaded, sweaty and nauseous. He denies loss of consciousness and denies chest pain. He states the sensation has since resolved. He denies any recent change in medications, nausea, vomiting, chest pain, shortness of breath, cough or bleeding from any source. He has no other complaints at this time. Related Data Home Medications Medication Instructions Recorded Confirmed metoprolol succinate 50 mg capsule 100 mg PO DAILY 12/09/19 03/05/23 sprinkle, ext. release 24 hr amiodarone 200 mg tablet 200 mg PO DAILY 01/10/23 03/05/23 rosuvastatin 40 mg tablet 40 mg PO DAILY 01/10/23 03/05/23 Allergies Allergy/AdvReac Type Severity Reaction Status Date / Time No Known Allergies Allergy Unknown Verified 09/23/23 10:34 Review of Systems Review of Systems: All systems reviewed & are unremarkable except as noted in HPI and below PMFSH Past Medical History Medical History Adenomatous colon polyp (~10/29/22) History of stress test Hypercholesteremia Hyperlipidemia Hypertension Family History Family History Mother Hypertension Social History Social History Smoking status: Never smoker Alcohol intake: never Substance use: never Substance use type: does not use Lack of Transportation: No Lack of Food: Never True Current Housing: I Have Housing Concerned About Future Housing: No Difficulty Paying Gas/Electric Bills: No Difficulty Paying for Meds: No Currently Unemployed: No Education: Bachelor's Degree Difficulty w/ Childcare or Family Care: No Living arrangements: with family Gender identity (if verbalized by the patient): Male Spiritual care concerns: No Exam Narrative: GENERAL: Well-developed, well-nourished, and in no acute distress. HEAD: Normocephalic, atraumatic. EYES: PERRLA and EOMI. CHEST: Clear to auscultation. No respiratory distress. No wheezes rales or rhonchi HEART: Regular rate and rhythm. No murmur heard. Normal peripheral pulses. ABDOMEN: Soft, nontender, nondistended, normal active bowel sounds. EXTREMITIES: Normal range of motion. No edema. SKIN: Warm, dry, no rash. NEURO: Alert and oriented x3. No focal deficit. Moving all 4 limbs spontaneously PSYCH: Normal mood and affect. Course Course Emergency Course: 11:15 - EKG not concerning for ischemia or arrhythmia. Review of the patient's monitor was not concerning for arrhythmia. Chemistries unremarkable. Chest x-ray not concerning for acute cardiopulmonary process. CBC unremarkable. The patient states he feels at baseline. I offered IV fluids and continue monitoring for repeat troponin. The patient accepts IV fluids and politely declines repeat lab testing. I suspect a near syncopal episode is the cause of his symptoms. Will discharge with recommendation for primary care follow-up. I discussed the findings and recommendations with the patient. Discussed return and emergency precautions including signs/symptoms of ACS and respiratory distress. The patient voiced understanding and agreement with the plan. All questions answered to his satisfaction. Vital Signs Vital signs: Vital Signs Temperature 97.8 F 09/23/23 09:55 Pulse Rate 54 L 09/23/23 09:55 Respiratory Rate 16 09/23/23 09:55 Blood Pressure 138/96 H 09/23/23 09:55 Pulse Oximetry 96
[2023-09-23] MEDS: LACTATED RINGERS 1,000 ML 999 ML IV CONT (11:34)
== END 2023-09-23 12:19 | disposition home or self-care (01) ==
PROVIDERS: Emergency Provider Preventive Medicine Aerospace Medicine; PCP Family Medicine
DX: R55 Syncope and collapse (principal); R00.1 Bradycardia, unspecified; I25.10 Atherosclerotic heart disease of native coronary artery without angina pectoris; I10 Essential (primary) hypertension; E78.00 Pure hypercholesterolemia, unspecified; Z95.1 Presence of aortocoronary bypass graft; Z86.010 Personal history of colon polyps; Z79.899 Other long term (current) drug therapy; R94.31 Abnormal electrocardiogram [ECG] [EKG]
CPT/HCPCS: 36415; 71046; 80053; 83690; 84484; 85025; 85610; 85730; 93005; 96360; 99284; A9270; J7120

== ENCOUNTER 2024-01-14 09:54 | Outpatient (CLI) | payer OTHER, SELFPAY ==
[2024-01-14 11:16] LABS: Basophils Percent Auto 0.7 % (0.2-1.2); Eosinophils Absolute Auto 0.1 K/mm3 (0-0.3); Eosinophils Percent Auto 1.2 % (0-4.4); Hematocrit 50.4 % (42.0-52.0); Hemoglobin 16.6 g/dL (14.0-18.0); Immature Granulocyte Absolute 0.02 K/mm3 (0.00-0.031); Immature Granulocyte Percent A 0.4 % (0-0.5); Lymphocytes Absolute Auto 1.29 K/mm3 (0.9-3.2); Lymphocytes Percent Auto 22.8 % (18.3-44.2); Mean Corpuscular HGB Conc 32.9 g/dl (32-36); Mean Corpuscular Hemoglobin 29.1 pg (26-34); Mean Corpuscular Volume 88.3 fl (80-100); Mean Platelet Volume 9.7 fl (7.4-10.4); Monocytes Absolute Auto 0.5 K/mm3 (0.1-0.6); Neutrophils Absolute Auto 3.8 K/mm3 (1.3-6.7); Neutrophils Percent Auto 66.9 % (45.5-73.1); Platelet Count Result 191 k/mm3 (150-375); Red Blood Count 5.71 M/mm3 (4.6-6.20); White Blood Count 5.7 K/mm3 (4.5-10.0)
[2024-01-14 11:24] LABS: Alanine Aminotransferase 32 U/L (6-50); Albumin Level 4.3 g/dL (3.5-5.1); Alkaline Phosphatase 86 U/L (38-126); Anion Gap 9 mmol/L (4-12); Aspartate Amino Transferase 22 U/L (17-59); Bilirubin,Total 0.9 mg/dL (0.2-1.3); Blood Urea Nitrogen 16 mg/dL (9-20); Calcium 8.8 mg/dL (8.4-10.2); Carbon Dioxide 26 mmol/L (22-30); Chloride 106 mmol/L (98-107); Cholesterol 118 mg/dL (0-200); Estimated Glomerular Filt Rate > 60; Glucose 89 mg/dL (65-110); HDL Direct 38 mg/dL; Potassium 4.1 mmol/L (3.4-5.0); Sodium 141 mmol/L (137-145); Triglycerides 85 mg/dL (<150); Uric Acid 5.2 mg/dL (3.5-8.5)
[2024-01-14 11:35] LABS: LDL Cholesterol Direct 60 mg/dL
[2024-01-14 11:54] LABS: Prostate Specific Antigen 1.1 ng/mL (< OR = 4.0)
== END 2024-01-14 09:55 | disposition home or self-care (01) ==
LOC: ANHLAB 09:57
PROVIDERS: PCP Family Medicine; Visit Provider Family Medicine
DX: I48.0 Paroxysmal atrial fibrillation (principal); I10 Essential (primary) hypertension; E78.2 Mixed hyperlipidemia; I25.10 Atherosclerotic heart disease of native coronary artery without angina pectoris
CPT/HCPCS: 36415; 80053; 80061; 84153; 84443; 84550; 85025; G0103

== ENCOUNTER 2024-02-25 14:03 | Emergency (ER) | payer OTHER, SELFPAY ==
[2024-02-25 14:13] VITALS: BP 121/76; PULSE 57; RESP 16; TEMP 36.1; O2SAT 98
--- NOTE | 2024-02-25 14:41 | ED.URI ---
HPI - URI/Sore Throat General Chief Complaint: Upper Respiratory Infection Stated Complaint: sore throat and congestion Time Seen by Provider: 02/25/24 14:24 Source: patient and RN notes reviewed Mode of arrival: ambulatory Limitations: no limitations History of Present Illness HPI Narrative: Small patient presents today complaining of fatigue, sore throat, dry cough, nasal congestion, hoarse voice. Symptoms began yesterday. Denies fever or shortness of breath. He currently rates his pain 7/10 and has tried Mucinex without relief. Reports daughter is sick currently with pneumonia. Related Data Home Medications ?Medication ?Instructions ?Recorded ?Confirmed ?Last Taken ?Type metoprolol succinate 50 mg capsule 100 mg PO DAILY 12/09/19 10/29/23 07/15/22 History sprinkle, ext. release 24 hr rosuvastatin 40 mg tablet 40 mg PO DAILY 01/10/23 10/29/23 Unknown History Allergies Allergy/AdvReac Type Severity Reaction Status Date / Time No Known Allergies Allergy Unknown Verified 02/25/24 14:18 Review of Systems Review of Systems: CONSTITUTIONAL: Denies body aches, fever, chills, or sweats.+ fatigue EYES: Denies visual changes, redness, or discharge. ENT: Denies rhinorrhea, or otalgia.+ congestion, sore throat, hoarse voice CARDIOVASCULAR: Denies chest pain, palpitations, or edema. RESPIRATORY: Denies dyspnea.+ cough GASTROINTESTINAL: Denies abdominal pain, nausea, vomiting, or diarrhea. GENITOURINARY: Denies dysuria or hematuria. SKIN: Denies rash, itching, or wounds. MUSCULOSKELETAL: Denies back pain, joint pain, or myalgia. NEUROLOGIC: Denies headache, numbness, tingling, or weakness. PSYCH: Denies depression or anxiety. [facility] Past Medical History Medical History History of stress test Hyperlipidemia Adenomatous colon polyp (~10/29/22) Hypercholesteremia Hypertension Family History Family History Mother Hypertension Social History Social History Smoking status: Never smoker Alcohol intake: never Substance use: never Substance use type: does not use Do You Feel Safe in your Home?: Yes Lack of Transportation: No Lack of Food: Never True Current Housing: I Have Housing Concerned About Future Housing: No Difficulty Paying Gas/Electric Bills: No Difficulty Paying for Meds: No Currently Unemployed: No Education: Bachelor's Degree Difficulty w/ Childcare or Family Care: No Living arrangements: with family Gender identity (if verbalized by the patient): Male Spiritual care concerns: No Comments At time of signature, I have reviewed and agree with nursing past medical, surgical, social and family history unless otherwise noted. Please see nursing chart for further information. There is no relevant family history pertinent to the presenting complaint Exam Narrative: GENERAL: Well-appearing, well-nourished, and in no acute distress. HEAD: Normocephalic, atraumatic. EYES: EOMI. No redness or drainage. Conjunctivae normal. ENT: Mucous membranes pink and moist. Nares mildly congested. No rhinorrhea. TMs normal bilaterally. Throat mildly erythematous without edema or exudate. Uvula midline. Voice is slightly hoarse NECK: Normal AROM. Supple. No lymphadenopathy. CHEST: No respiratory distress. Clear to auscultation. HEART: Regular rate and rhythm. No murmur appreciated. EXTREMITIES: Normal range of motion. No edema. SKIN: Warm, dry, no rash. Capillary refill normal. Normal skin turgor. NEURO: No focal deficits. Alert and oriented x3. Gait steady. PSYCH: Normal affect. No signs of depression or anxiety. Course Course Level of Care: Express Care Visit Vital Signs Vital signs: Vital Signs Temperature 97.0 F L 02/25/24 14:13 Pulse Rate 57 L 02/25/24 14:13 Respiratory Rate 16 02/25/24 14:13 Blood Pressure 121/76 02/25/24 14:13 Pulse Oximetry 98 02/25/24 14:13 Oxygen Delivery Room Air 02/25/24 14:13 Temperature 97.0 F L 02/25/24 14:13 Pulse Rate 57 L 02/25/24 14:13 Respiratory Rate 16 02/25/24 14:13 Blood Pressure 121/76 02/25/24 14:13 Pulse Oximetry 98 02/25/24 14:13 Oxygen Delivery Room Air 02/25/24 14:13 Reviewed MDM - URI/Sore Throat MDM Narrative Medical decision making narrative: Patient declines testing for influenza or COVID-19. Rapid strep negative. Culture pending. Symptoms likely viral in etiology. Discussed [id number] medication use and duration of illness. No prescription medications indicated at this time. Anticipatory guidance given. Differential Diagnosis Differential diagnosis: Likely upper respiratory infection, viral infection, bronchitis, influenza, pharyngitis and other (Strep throat, COVID) Lab Data Attestation: I reviewed the patient's lab results. Critical Care Time Critical Care Time Critical Care Time: No Discharge Plan Discharge Clinical Impression: Upper respiratory infection Qualifiers: URI type: unspecified URI Qualified Code(s): J06.9 - Acute upper respiratory infection, unspecified Patient Disposition: Home, Self-Care Condition: Stable Instructions: Upper Respiratory Infection (DC) Additional Instructions: Your rapid strep swab was negative today at [facility]. You will be notified in a few days if the culture comes back positive for strep, and appropriate antibiotics will be called in for you at that time. Your symptoms are likely due to a viral illness, which is not treated with antibiotics. Viral symptoms can be present for up to 7-10 days. Take Tylenol for fever or pain. Continue the Mucinex DM for cough and chest congestion. You may consider using a Flonase nasal spray or allergy medications such as Zyrtec, Claritin, or Britni to help with your postnasal drainage, hoarseness, and sore throat. Rest and stay hydrated. Follow up with your PCP in 7-10 days if symptoms are not improving, or sooner if symptoms worsen. Go to the ER immediately if you have any difficulty breathing or swallowing, develops a new fever greater than 100.3. Your blood pressure was elevated above 120/80 today at Urgent Care. This puts you above the threshold for follow up. Please schedule a followup visit with your personal physician as soon as possible, for further evaluation and treatment. Even blood pressure exceeding 120/80 may indicate pre-hypertension. Patient Language: Albanian Prescriptions: No Action metoprolol succinate 50 mg Capsule,Sprinkle,Er 24hr 100 mg PO DAILY rosuvastatin 40 mg tablet 40 mg PO DAILY Follow-up/Referrals: Ayad,Bro Ambriz MD [Primary Care Provider] - Time of Disposition: 14:55
[2024-02-25 14:50] LABS: EDSTREPNEGPOS1 Negative (Negative)
== END 2024-02-25 14:59 | disposition home or self-care (01) ==
PROVIDERS: Emergency Provider Nurse Practitioner; PCP Family Medicine
DX: J06.9 Acute upper respiratory infection, unspecified (principal); E78.5 Hyperlipidemia, unspecified; E78.00 Pure hypercholesterolemia, unspecified; I10 Essential (primary) hypertension
CPT/HCPCS: 87081; 87880; 99213; G0463

== ENCOUNTER 2024-05-03 08:01 | Emergency (ER) | payer OTHER, SELFPAY ==
[2024-05-03 08:37] VITALS: BP 117/87; PULSE 50; RESP 16; TEMP 36.2; O2SAT 100
--- NOTE | 2024-05-03 08:37 | ED_ITS ---
HPI - Ear Problem General Chief complaint: Ear Stated complaint: ear pain Source: patient Mode of arrival: ambulatory Limitations: no limitations History of Present Illness HPI Narrative: 58-year-old male presented for complaint of left ear pain worsening over the past 2 days. Describes the pain as sharp and piercing. Denies decreased hearing, tinnitus, dizziness, nasal congestion or fever. Taking Tylenol and Mucinex for symptoms. MD Complaint: ear pain Related Data Home Medications ?Medication ?Instructions ?Recorded ?Confirmed ?Last Taken ?Type metoprolol succinate 50 mg capsule 100 mg PO DAILY 12/09/19 10/29/23 07/15/22 History sprinkle, ext. release 24 hr rosuvastatin 40 mg tablet 40 mg PO DAILY 01/10/23 10/29/23 Unknown History Allergies Allergy/AdvReac Type Severity Reaction Status Date / Time No Known Allergies Allergy Unknown Verified 05/03/24 08:32 Review of Systems Review of Systems: CONSTITUTIONAL: Denies malaise, chills, or fever. EYES: Denies visual changes, redness, or discharge. ENT: Denies rhinorrhea, congestion, sinus pain, and sore throat. Reports ear pain CARDIOVASCULAR: Denies chest pain, palpitations, or edema. RESPIRATORY: Denies cough or dyspnea. GASTROINTESTINAL: Denies abdominal pain, nausea, vomiting, diarrhea SKIN: Denies rash or itching. MUSCULOSKELETAL: Denies myalgia. NEUROLOGIC: Denies headache. All systems reviewed & are unremarkable except as noted in HPI and below PMFSH Past Medical History Medical History (Updated 05/03/24 @ 08:49 by Mary Katz APRN) Essential hypertension History of stress test Hyperlipidemia Adenomatous colon polyp (~10/29/22) Hypercholesteremia Hypertension Family History Family History Mother Hypertension Social History Social History Smoking status: Never smoker Alcohol intake: never Substance use: never Substance use type: does not use Do You Feel Safe in your Home?: Yes Lack of Transportation: No Lack of Food: Never True Current Housing: I Have Housing Concerned About Future Housing: No Difficulty Paying Gas/Electric Bills: No Difficulty Paying for Meds: No Currently Unemployed: No Education: Bachelor's Degree Difficulty w/ Childcare or Family Care: No Living arrangements: with family Gender identity (if verbalized by the patient): Male Spiritual care concerns: No Comments At time of signature, agree with nursing past medical, surgical, social and family history. There is no relevant family history pertinent to the presenting complaint Exam Narrative: GENERAL: Well-appearing, and in no acute distress. EYES: PERRLA, conjunctivae clear ENT: Nares clear. Mucous membranes moist. right TM pearly haskins with dull light reflex; Left TM erythematous, bulging and intact; canal not erythematous, no drainage no tragal tenderness. Oropharynx not erythematous without lesions. Tonsils not enlarged and without exudate, no drooling, no hoarseness, no trismus, uvula midline. NECK: Supple. No lymphadenopathy CHEST: Clear to auscultation, breath sounds equal. No respiratory distress, speaks in full sentences. HEART: Regular rate and rhythm. SKIN: Warm, dry, no rash. NEURO: Alert and oriented x3. PSYCH: Normal mood and affect Course Course Emergency Course: Patient is aware of diagnosis, understands and agrees to treatment plan. Anticipatory guidance given. Patient agrees to follow-up as directed and is aware of reasons to seek care at the emergency department. Portions of this record may have been created with voice recognition software Level of Care: Express Care Visit Vital Signs Vital signs: Reviewed Medical Decision Making MDM Narrative Medical decision making narrative: Discussed physical exam findings consistent with left AOM. Advised supportive measures and signs/symptoms to go to the ER. Patient is appropriate for outpatient treatment and follow-up. Differential Diagnosis Differential Diagnosis: Coronavirus, strep pharyngitis, allergic rhinitis, upper respiratory tract infection, sinusitis, rhinosinusitis, nasopharyngitis, viral pharyngitis, otitis media, otitis externa, eustachian tube dysfunction, foreign body, cerumen impaction. Discharge Plan Discharge Clinical Impression: Otitis media Patient Disposition: Home, Self-Care Condition: Stable Instructions: Antibiotic Form, Ear Infection (ED) Additional Instructions: Take antibiotics as directed. Recommendations: antihistamine such as Benadryl, Zyrtec or Britni for sinus congestion Flonase nasal spray, 1 spray in each nostril once daily until symptoms improve Rest, fluids, and increase humidity of the air at home. Tylenol 1000mg every 8 hours as needed to reduce fever, pain Please schedule a follow-up visit with your personal physician If your symptoms persist, change or worsen significantly, go to the emergency department for further evaluation. Patient Language: Sinhala Prescriptions: New amoxicillin-pot clavulanate 875-125 mg tablet 1 tablet PO Q12H 7 Days Qty: 14 0RF No Action metoprolol succinate 50 mg Capsule,Sprinkle,Er 24hr 100 mg PO DAILY rosuvastatin 40 mg tablet 40 mg PO DAILY Follow-up/Referrals: Ayad,Bro Ambriz MD [Primary Care Provider] - Time of Disposition: 08:47
--- OUTSIDE RECORDS SUMMARY | 2024-05-03 11:24 | XMS_ITS | Encounter Summary ---
Author Organization [facility] Address [facility] [place] [address] Care Team Providers Care Home Theater Specialist Name Role Phone Bro Lion MD Primary Care Provider [phone] Encounter Details Date Type Department Care Team (Late Contact Info) Description 10/20/2023 Abstract [facility], [facility] [address] [place] [address] Debo Roth MA Social History Tobacco Use Types Packs/Day Years Used Date Smoking Tobacco: Never Passive Smoke Exposure: Past Smokeless Tobacco: Never Alcohol Use Standard Drinks/Week Comments No 0 (1 standard drink = 0.6 oz pur e alcohol) AUDIT-C Answer Date Recorded Frequency of Alcohol Consumption Never 02/12/2018 Average Number of Drinks Not on file 018 Frequency of Binge Drinking Not on file 01/16 PHQ-2 Answer Date Recorded Patient Health Questionnaire-2 Score 0 05/15/2022 Sex and Gender Information Value Date Recorded Sex Assigned at Not on file Legal Sex Male 6:22 PM CDT Gender Identity Not on file Sexual Orientation Not on file documented as of this encounter Plan of Treatment Upcoming Encounters Date Type Department Care Team (Late Contact Info) Description 09/03/2024 10:30 AM CDT [facility] [address] [place] [id number] Chip Nichols MD [facility]. [facility] [address] [place] [id number] documented as of this encounter Procedures Procedure Name Priority Date/Time Associated Diagnosis Comments COMPREHENSIVE METABOLIC PANEL Routine 1965 CBC, MANUAL DIFF Routine 1965 documented in this encounter Results * COMPREHENSIVE METABOLIC PANEL (1964) SODIUM S/P/B 139 GLUCOSE 145 mg/dL AST 22 BUN 14 CREATININE S/P/B 0.90 0.7 - 1.3 CALCIUM S/P/B 8.7 POTASSIUM S/P/B 4.2 CHLORIDE S/P/B 106 ALT 28 GFR ESTIMATE >60 us Default History Genericprovider LABORATORY Final Result * CBC, MANUAL DIFF (1964) WBC 5.3 HGB 16.0 HCT 48.6 PLT 188 us Default History Genericprovider LABORATORY Final Result documented in this encounter Visit Diagnoses Not on filedocumented in this encounter Additional Health Concerns Assessment Noted Time PHQ-9 Depression Total Score: 0 01/09/20 21 11:17 AM CDT documented as of this encounter Care Teams Home Theater Specialist Relationship Specialty Start Date End Date Bro Lion MD PCP - General FAMILY PRACTICE 02/12/18 documented as of this encounter
--- OUTSIDE RECORDS SUMMARY | 2024-05-03 11:24 | XMS_ITS | Clinical Summary ---
Author Organization [facility] Address [address] [place] [address] Care Team Providers Care Buggy Runner Name Role Phone Bro Lion MD Primary Care Provider [phone] Allergies No known active allergies Medications aspirin EC (ECOTRIN) 81 MG tabletIndicatio ns:Anticoagulan t Therapy Take 1 tablet (81 mg total) by mouth daily. 3 Active nitroglycerin (NITROSTAT) 0.4 MG SL tabletIndicatio ns:Chest Pain Place 1 tablet (0.4 mg total) under the tongue every 5 (five) minutes as needed for Chest Pain. Maximum of 3 doses. If taking 3rd dose call 911 25 tablet 1 3 Active metoprolol succinate ER (TOPROL-XL) 50 MG 24 hr tablet Take 1 tablet (50 mg total) by mouth daily. 90 tablet 3 5 Active rosuvastatin (CRESTOR) 40 MG tablet Take 1 tablet (40 mg total) by mouth nightly at bedtime. at bedtime 90 tablet 3 5 Active rosuvastatin (CRESTOR) 40 MG tablet TAKE 1 TABLET BY MOUTH EVERY NIGHT AT BEDTIME 90 tablet 3 4 04/05/19 25 Discontinue d(Reorder) metoprolol succinate ER (TOPROL-XL) 50 MG 24 hr tablet take 1 tablet by mouth daily 90 tablet 1 4 04/05/19 25 Discontinue d(Reorder) sildenafil (VIAGRA) 50 MG tabletIndicatio ns:Erectile dysfunction, unspecified erectile dysfunction type Take 1 tablet (50 mg total) by mouth daily as needed for Erectile Dysfunction. 10 tablet 4 04/15/19 25 Active Problems Problem Noted Date Diagnosed Date ED (erectile dysfunction) 03/16/2024 Assessment & Plan (03/17/2024 1:08 PM PASTA MAKER): Trial of Viagra/sildenafil low-dose 25 mg 30 minutes before sex. If well- tolerated may go up to 50 mg as directed. Advised to take it preferably on an empty stomach and avoid alcohol. Patient was seen by cardiology and was cleared to take Viagra/sildenafil and the like as long as not on nitroglycerin within 24 hours. Patient is not on p.o. isosorbide. Discussed adverse effects, interactions, directions with patient at length. He may take Tylenol Extra Strength for headaches. Counseling/education done at length.--- Patient is not on a maintenance nitroglycerin except for nitroglycerin/Nitrostat sublingual taken as needed only. Absolute contraindication in combination with nitroglycerin and relative in combination with alpha blockers. Patient verbalized understanding. Vasovagal syncope 09/26/2023 Assessment & Plan (09/26/2023 1:23 PM CDT): Episode sounds like classic vasovagal syncope. I do not think that its cardiac in nature. His EKG shows signs of bradycardia. His troponins were negative. I dont think there's any further testing required. We briefly discussed heart monitoring, and if he has recurrent episodes, we can consider that in the future. Paroxysmal atrial fibrillation ([facility]) 12/29/2022 Assessment & Plan (03/17/2024 1:10 PM PASTA MAKER): A-fib postoperatively after CABG. Asymptomatic and remaining sinus rhythm. Currently off amiodarone. Taking metoprolol as discussed. Assessment & Plan (01/19/2024 3:11 PM PASTA MAKER): Patient had A-fib postoperatively after CABG. Currently off amiodarone. Patient continues to do well. In sinus rhythm. Assessment & Plan (03/01/2023 1:00 PM PASTA MAKER): Had atrial fibrillation postoperatively after CABG. Discontinue amiodarone. Assessment & Plan (12/29/2022 11:01 AM CDT): Had atrial fibrillation postoperatively after CABG. Continue amiodarone for 3 months. Will discontinue at next visit. Abnormal stress test 11/01/2022 Assessment & Plan (11/01/2022 12:32 PM CDT): Given that he had symptoms of chest pain on the treadmill, EKG changes and perfusion abnormalities, I recommended that he undergo cardiac catheterization. I discussed options including potential need for percutaneous coronary intervention versus coronary artery bypass surgery. I have discussed the procedure in detail including radial or femoral access, coronary angiography and possible stent placement. I have discussed the risks and benefits of cardiac catheterization that include but are not limited to: bleeding, infection, cerebrovascular accident (<1%), myocardial infarction (<1%) and (< 1%). Coronary artery disease invo lving [place] coronary artery of [place] heart without angina pectoris 10/17/2022 Assessment & Plan (03/17/2024 1:09 PM PASTA MAKER): Status post CABG November 2022. Done with cardiac rehab and continues to do well and remains active. Continue aspirin, rosuvastatin and metoprolol as ordered compliantly. Low-cholesterol/salt diet. Stay active. Assessment & Plan (03/05/2024 2:22 PM PASTA MAKER): Status post CABG 11/2022. Patient is without anginal symptoms. He completed cardiac rehab and is continuing to remain active by playing pickleball. Continue current CAD medical management with aspirin, metoprolol, and rosuvastatin Patient recently spoke with PCP regarding use of ED medications and would like cardiac clearance prior to use. Advised patient that he can use ED medications but to avoid use of nitro within 24 hours. Assessment & Plan (01/19/2024 3:10 PM PASTA MAKER): SP CABG. Patient continues to do well. Denies any anginal symptoms. Likewise denies any symptoms of heart failure. Done with cardiac rehab and did well. Continue aspirin and rosuvastatin. Follow-up cardiology. Assessment & Plan (08/29/2023 11:53 AM CDT): He is status post coronary bypass grafting and is not having any anginal symptoms. He finished cardiac rehab. Continue Aspirin and Rosuvastatin. Assessment & Plan (03/10/2023 11:59 AM PASTA MAKER): He is found to have significant coronary artery calcification seen on CT scan. I recommended he undergo functional testing with a nuclear stress test to determine the extent of his symptoms and whether or not he is having ischemia. I recommended he start metoprolol and increase atorvastatin. Assessment & Plan (03/01/2023 12:59 PM PASTA MAKER): He underwent cardiac catheterization that showed obstructive coronary artery disease in the LAD and RCA. He is status post CABG. Continue aspirin, metoprolol and rosuvastatin. Assessment & Plan (12/29/2022 10:59 AM CDT): He underwent cardiac catheterization that showed obstructive coronary artery disease in the LAD and RCA. He is status post CABG. Continue aspirin, metoprolol and rosuvastatin. Will refer to cardiac rehab. Assessment & Plan (11/01/2022 12:32 PM CDT): He underwent nuclear stress testing today because of abnormal coronary artery calcium score. His coronary artery calcium score was abnormal in the LAD and right coronary artery distributions. Assessment & Plan (10/20/2022 3:32 PM CDT): Left main: 0.0, circumflex: 102, LAD: 1168, right coronary: 529 == total calcium score: 1707: Extensive plaque--we will refer patient to cardiology. Will increase atorvastatin to 40 mg daily. Baby aspirin daily. EKG. Discussed at length significance of test results. Spondylosis of lumbar spine 01/08/2021 Assessment & Plan (10/20/2022 3:29 PM CDT): Chronic. Tylenol as needed. We will see Ortho December 15. Assessment & Plan (05/15/2022 3:15 PM PASTA MAKER): So far patient is doing well. Tylenol as needed. Exercise. Assessment & Plan (01/08/2021 12:26 PM CDT): We will get x-ray of lumbar spines. For now start Medrol Dosepak and Flexeril as discussed. Consider PT if indicated. Discussed adverse effects and reactions. Advised not to operate any machine or drive when drowsy. Primary osteoarthritis of both hips 12/21/2020 Assessment & Plan (01/19/2024 3:12 PM PASTA MAKER): Patient so far is doing well. Follow-up Ortho. Assessment & Plan (10/17/2022 4:09 PM CDT): Recommend PT. States he is going to see his orthopedic doctor, November 15. Assessment & Plan (05/15/2022 3:15 PM PASTA MAKER): Osteoarthritis of hips. So far doing well. Exercise. Tylenol as needed. Assessment & Plan (01/08/2021 12:25 PM CDT): We will get x-ray of left hip. For now start Medrol Dosepak x1 as directed and Flexeril as previously ordered. Consider PT after reviewing x-ray. Assessment & Plan (2020 1:47 PM CDT): On and off left hip pain possible OA/DJD. Will get x-ray of right hip-patient declined for now. Start Motrin 400 to 600 mg 3 times daily as needed and Flexeril 10 mg 3 times daily as needed as well. Adverse effects discussed. Advised appropriate any machine or drive when drowsy. Consider PT. Reevaluate patient in 3 to 4 weeks. Right otitis media 04/12/2020 Assessment & Plan (04/12/2020 4:15 PM PASTA MAKER): Right ear pain resolved. Advised to continue and finish amoxicillin 875 mg twice daily for total of 10 days. Otitis media, left 09/28/2019 Assessment & Plan (09/28/2019 5:08 PM CDT): Start patient on Ceftin 250 mg twice daily for 10 days. May take Tylenol extra strength 1-2 every 8 hours as needed or Motrin 400 to 600 mg 3 times daily as needed with food. Screening PSA (prostate specific antigen) 2019 Assessment & Plan (05/15/2022 3:13 PM PASTA MAKER): He is due for his annual screening PSA. Assessment & Plan (2020 1:49 PM CDT): Patient is due for his annual screening PSA test. Scrotal fullness 05/25/2019 Assessment & Plan (05/25/2019 8:32 AM CDT): Mild right scrotal discomfort--we will monitor for now. Scrotal examination is essentially unremarkable. No palpable mass/tenderness/warmth/swelling. He may take Motrin 400 to 600 mg daily as needed. Warm compress. Acute bronchitis due to other specified organism s 02/12/2018 Assessment & Plan (02/12/2018 4:49 PM PASTA MAKER): Productive hacking cough Cellulitis of external nose 06/25/2013 Hypertension 12/15/2012 Assessment & Plan (03/17/2024 1:10 PM PASTA MAKER): BP is controlled. Normotensive. Continue metoprolol succinate 50 mg daily. More likely for CAD. Low-salt diet. Stay active. Assessment & Plan (01/19/2024 3:11 PM PASTA MAKER): Normotensive and controlled. Currently on metoprolol succinate 50 mg daily.= More likely for his CAD. Low-salt diet. Assessment & Plan (08/29/2023 11:55 AM CDT): BP is well controlled. Metoprolol is more for his coronary artery disease as opposed to blood pressure. Assessment & Plan (12/29/2022 11:02 AM CDT): Blood pressure is well controlled. Continue metoprolol. Assessment & Plan (10/20/2022 3:20 PM CDT): Normotensive and controlled. Continue metoprolol succinate 50 mg daily and low-cholesterol/salt diet. Assessment & Plan (05/15/2022 3:13 PM PASTA MAKER): BP is controlled. Continue metoprolol succinate 50 mg daily and low cholesterol/salt diet. Exercise and stay active. Assessment & Plan (2020 1:48 PM CDT): Normotensive and well controlled. Continue metoprolol succinate 50 mg daily and low-cholesterol/salt diet. Stay active. Assessment & Plan (04/12/2020 4:15 PM PASTA MAKER): Normotensive. Continue metoprolol succinate 50 mg daily. Continue low-cholesterol/salt diet. Stay active. Assessment & Plan (09/28/2019 5:09 PM CDT): BP is well controlled. Continue same dose of metoprolol succinate 50 mg daily. Continue low-cholesterol/salt diet. Exercise and stay active. Assessment & Plan (05/25/2019 8:30 AM CDT): Normotensive and well controlled. Continue metoprolol succinate 50 mg daily. Always stay on a low-cholesterol/salt diet. Exercise and stay active. Assessment & Plan (08/18/2018 4:33 PM CDT): Blood pressures well controlled. Continue metoprolol succinate 50 mg daily. Continue diet and exercise. Assessment & Plan (02/12/2018 4:41 PM PASTA MAKER): Well-controlled. Furuncle 09/01/2012 Hyperlipidemia Assessment & Plan (03/05/2024 2:23 PM PASTA MAKER): Last lipid panel with LDL of 58. Recent lipid panel is ordered through PCP. Continue rosuvastatin. Assessment & Plan (01/19/2024 3:11 PM PASTA MAKER): Lipids controlled. LFTs normal. Continue rosuvastatin 40 mg daily. Low- cholesterol diet. Stay active. Assessment & Plan (08/29/2023 11:54 AM CDT): Continue Rosuvastatin Assessment & Plan (03/10/2023 12:00 PM PASTA MAKER): Recommend increasing atorvastatin. Assessment & Plan (03/01/2023 12:59 PM PASTA MAKER): Continue rosuvastatin. Assessment & Plan (12/29/2022 10:59 AM CDT): Continue rosuvastatin. Assessment & Plan (10/20/2022 3:21 PM CDT): Will increase rosuvastatin to 40 mg daily. Advised to always stay on a strict low-cholesterol/carbohydrate/salt diet. We will get repeat lipids/LFTs in 3 weeks. Assessment & Plan (05/15/2022 3:13 PM PASTA MAKER): His recent lipid panel controlled with normal LFTs. Continue atorvastatin 10 mg daily and low-cholesterol/salt diet. We will get routine blood test including lipid panel this week. Adjust dose accordingly. Assessment & Plan (2020 1:48 PM CDT): Last lipid panel controlled. LFTs normal. Continue atorvastatin 10 mg daily and low-cholesterol/salt diet. Stay active. Will get routine blood test including lipid panel this month. Assessment & Plan (04/12/2020 4:15 PM PASTA MAKER): Patient lipid panel well controlled. LFTs normal. Continue same dose of atorvastatin 10 mg daily and low-cholesterol/salt diet. Stay active. We will get routine blood tests including lipid panel next visit. Assessment & Plan (09/28/2019 5:09 PM CDT): Lipid panel well controlled. LFTs normal. Continue atorvastatin 10 mg daily. Always stay on a low-cholesterol/salt diet. Exercise stay active. Assessment & Plan (05/25/2019 8:29 AM CDT): Lipid panel controlled. LFTs normal. Continue same dose of atorvastatin 10 mg daily. Always stay in a low-cholesterol diet. Exercise and stay active. Will get routine blood tests including lipids this coming August. Assessment & Plan (08/18/2018 4:33 PM CDT): Lipids controlled. Continue atorvastatin 10 mg daily. Continue low-cholesterol diet. Exercise. Resolved Problems Problem Noted Date Diagnosed Date Resolved Date Encounter for preventive health examination 09/01/2012 11/26/2019 Anxiety 10/15/2022 Assessment & Plan (01/19/2024 3:12 PM PASTA MAKER): In good spirits. Well-controlled. He takes lorazepam very occasionally only and not to be abused. Assessment & Plan (05/15/2022 3:13 PM PASTA MAKER): In good spirits. He takes lorazepam as needed and very occasionally only and not to be abused. So far doing well. Assessment & Plan (2020 1:48 PM CDT): In good spirits. Well controlled. He takes lorazepam on a very as needed only he takes it very occasionally. Assessment & Plan (04/12/2020 4:16 PM PASTA MAKER): In good spirits. He has been taking lorazepam for some time now is doing well without it. Assessment & Plan (09/28/2019 5:09 PM CDT): In good spirits. He has been less anxious lately. He takes lorazepam very occasionally only. Patient aware of adverse effects. Assessment & Plan (05/25/2019 8:29 AM CDT): In good spirits. He takes lorazepam very occasionally only. Assessment & Plan (08/18/2018 4:34 PM CDT): Patient is doing well. In good spirits. He takes lorazepam 0.5 mg very occasionally only. Assessment & Plan (02/12/2018 4:46 PM PASTA MAKER): In good spirits. Encounters Date Type Department Care Team Description 04/05/2024 Orders Only [facility] [address] [place] [address] Luz Maxwell RN 03/16/2024 2:20 PM PASTA MAKER Office Visit [address] [phone] Bro Lion MD Follow Up (Medication request ) 03/16/2024 Travel 03/12/[address] [phone] Bro Lion MD Medication Request 03/08/[address] [phone] Bro Lion MD Error 03/05/2024 1:15 PM PASTA MAKER Office Visit [facility] [address] [phone] Chip Nichols MD Lanter, Megan N, IRIS Syncope; Coronary Artery Disease; Hypertension; Lipids 03/05/2024 Travel from Last 3 Months Immunizations Name Administration Dates Next Due PFIZER COVID-19 (ORIGINAL FO RMULATION, PURPLE CAP) mRNA, LNP-S, PF, 30 MCG/0.3 ML DOSE 03/28/2020,03/07/2020 Tdap (Generic) 11/16/2020 Family History Medical History Relation Comments car accident Father Heart Attack Maternal Grandmother Diabetes Mother Hyperlipidemia Mother Hypertension Mother Open Heart Mother cardiac stents [Other] Mother Relation Status Comments Father Maternal Grandfather Maternal Grandmother Mother Alive Social History Tobacco Use Types Packs/Day Years Used Date Smoking Tobacco: Never Passive Smoke Exposure: Past Smokeless Tobacco: Never Tobacco Cessation:Counseling Given: No Alcohol Use Standard Drinks/Week Comments Never 0 (1 standard drink = 0.6 oz pur e alcohol) AUDIT-C Answer Date Recorded Frequency of Alcohol Consumption Never 02/12/2018 Average Number of Drinks Not on file 018 Frequency of Binge Drinking Not on file 01/16 PHQ-2 Answer Date Recorded Patient Health Questionnaire-2 Score 0 01/19/2024 Sex and Gender Information Value Date Recorded Sex Assigned at Not on file Legal Sex Male 6:22 PM CDT Gender Identity Not on file Sexual Orientation Not on file Last Filed Vital Signs Vital Sign Reading Time Taken Comments Blood Pressure 112/70 03/16/2024 2:18 PM PASTA MAKER Pulse 52 03/16/2024 2:18 PM PASTA MAKER Temperature 36.2 C (97.2 F) 03/16/2024 2:18 PM PASTA MAKER Respiratory Rate 18 03/16/2024 2:18 PM PASTA MAKER Oxygen Saturation 97% 03/16/2024 2:18 PM PASTA MAKER Inhaled Oxygen Concentration - - Weight 89.4 kg (197 lb) 03/16/2024 2:18 PM PASTA MAKER Height 182.9 cm (6') 03/16/2024 2:18 PM PASTA MAKER Body Mass Index 26.72 03/16/2024 2:18 PM PASTA MAKER Plan of Treatment Upcoming Encounters Date Type Department Care Team (Late st Contact Info) Description 09/03/2024 10:30 AM CDT [facility] [address] [place] [phone] Chip Nichols MD [facility]. [address] [phone] Health Maintenance Due Date Last Done Comments Annual Physical 12/25/1967 Pneumococcal Vaccine: Pediatrics (0 to 5 Years) and At-Risk Patients (6 to 64 Years) (1 of 2 - PCV) 1970 Hepatitis C 1982 Zoster Vaccines (1 of 2) 2014 ASCVD LDL 11/13/2023 11/12/2022, 11/06/2022 COVID-19 Vaccine (4 - 2023-2 5 season) 2023 12/29/2020, 03/28/2020, 03/07/2020 Influenza Adult (#1) 2023 PHQ-2 (Physician [place]) 03/17/2024 01/19/2024 DTaP, Tdap and Td Vaccines ( 2 - Td or Tdap) 11/16/2030 11/16/2020 Colorectal Cancer Screening Colonoscopy (10 Years) 07/15/2032 07/15/2022 Meningococcal B Vaccine Aged Out No l onger eligible based on patient's age to complete this topic Meningococcal Vaccine Aged Out No chava reynold eligible based on patient's age to complete this topic RSV Immunizations Under 20 Months Aged Out No longer eligible b ased on patient's age to complete this topic Medical Devices Implanted Type Area Bottom Crane Operator Device Identifier Shelf Expiration Date Model / Serial / Lot Wire Sterum Suture Kit [employer] #7 03/18 Ccs-1 - [id number] Implanted:Qty: 1 on 11/20/2022 by Orville Douglas MD at [facility] Wire N/A: Sternum [employer] 10/15/2026 [id number] / / [id number] Description:2 Wires Implante d from 1 Package Wire Sternotomy Suture Kit - [id number] Implanted:Qty: 1 on 11/20/2022 by Orville Douglas MD at [facility] N/A: Sternum [employer] 04/17/2027 [id number] / / [id number] Description:5 Wires Implante d from 1 Package Procedures Procedure Name Priority Date/Time Associated Diagnosis Comments LIPID PANEL Routine 11/12/2022 11:24 AM CDT COLONOSCOPY GENERIC (SCAN ORDER) 07/15/2022 from Last 3 Months or Most Recently Relevant to Health Maintenance Results * (ABNORMAL) LIPID PANEL (11/12/2022 11:24 AM CDT) CHOLESTEROL 119 <200 MG/DL 02/21/2023 10:18 AM [facility] TRIGLYCERIDES 124 <150 MG/DL 02/21/2023 10:18 AM [facility] HDL 36(L) >40.0 MG/DL 02/21/2023 10:18 AM PASTA MAKER [facility] LDL (CALCULATED) 58 <100 MG/DL 02/22/20 10:18 AM [facility] NON HDL CHOLESTEROL 83 <130 MG/DL 02/21 10:18 AM [facility] Comment: NOTE: WHEN THE TRIGLYCERIDES ARE >200 mg/dL, NON HDL C IS A SECONDARY TARGET OF THERAPY, WITH A GOAL 30 mg/dL HIGHER THAN THE IDENTIFIED LDL C GOAL. CHOL/HDL RATIO 3.3 0.0 - 4.5 02/21/2023 10:18 AM [facility] VLDL CALCULATION 25 5 - 55 MG/DL 02/21/2023 10:18 AM [facility] LIPID INTERPRETATION 02/21/2023 10:18 AM [facility] Comment: NIH CONCENSUS REPORT RECOMMENDATIONS: ADULT CHILD LOW RISK: CHOLESTEROL <200 <170 TRIGLYCERIDE <150 --- HDL >=60 --- LDL <100 <110 BORDERLINE: CHOLESTEROL 200-239 170-199 TRIGLYCERIDE 150-199 --- HDL 40-59 --- LDL 100-159 110-129 HIGH RISK: CHOLESTEROL >=240 >=200 TRIGLYCERIDE >=200 --- HDL <40 --- LDL >=160 >=130 11/12/2022 11:2 4 AM CDT Chip Nichols MD LABORATORY Final Resul t [facility] [address] [place] [address], [place] [phone] * COLONOSCOPY GENERIC (07/15/2022) 07/15/2022 [facility] Scanned SCANNING Final Resu lt from Last 3 Months or Most Recently Relevant to Health Maintenance Insurance [employer] Advance Directives * Full Code (Latest Code Status on File) Date Activated Date Inactivated Comments 11/26/2022 4:57 PM 01/17/2023 11:32 AM Care Teams Buggy Runner Relationship Specialty Start Date End Date Bro Lion MD PCP - General FAMILY PRACTICE 02/12/18
--- OUTSIDE RECORDS SUMMARY | 2024-05-03 11:24 | XMS_ITS | Encounter Summary ---
Author Organization [facility] Address [facility] [place] [address] Care Team Providers Care Financial Developer Name Role Phone Bro Lion MD Primary Care Provider [phone] Encounter Details Date Type Department Care Team (Late Contact Info) Description 11/06/2022 Abstract [facility], [facility] [address] [place] [address] Debo Roth MA Social History Tobacco Use [...] Description 09/03/2024 10:30 AM CDT [facility] [address] [place] [phone] Chip Nichols MD [facility]. [facility] [address] [place] [phone] documented as of this encounter Procedures Procedure Name Priority Date/Time Associated Diagnosis Comments PROTIME (OUTSIDE LAB) Routine 11/06/2022 COMPREHENSIVE METABOLIC PANEL Routine 11/06/2022 LIPID PANEL Routine 11/06/2022 CBC, MANUAL DIFF Routine 11/06/2022 documented in this encounter Results * CBC, MANUAL DIFF (11/06/2022) WBC 6.1 HGB 17.1 HCT 50.3 PLT 202 Narrative Resulting Agency Comment us Default History Genericprovider LABORATORY Edited Result - Final * PROTIME (OUTSIDE LAB) (11/06/2022) PROTIME 13.1 INR 1.0 11/06/2022 us Default History Genericprovider LAB-OUTSIDE/ABST RACTED Final Result * COMPREHENSIVE METABOLIC PANEL (11/06/2022) SODIUM S/P/B 137 GLUCOSE 94 mg/dL BUN 13 CREATININE S/P/B 0.90 0.7 - 1.3 CALCIUM S/P/B 9.0 POTASSIUM S/P/B 4.3 CHLORIDE S/P/B 107 GFR ESTIMATE >60 Narrative Resulting Agency Comment us Default History Genericprovider LABORATORY Edited Result - Final * LIPID PANEL (11/06/2022) CHOLESTEROL 147 TRIGLYCERIDES 132 HDL 38 DIRECT LDL 84 Narrative Resulting Agency Comment us Default History Genericprovider LABORATORY Edited Result - Final documented in this encounter Visit Diagnoses Not on filedocumented in this encounter Additional Health Concerns Assessment Noted Time PHQ-9 Depression Total Score: 0 01/09/20 21 11:17 AM CDT documented as of this encounter Care Teams Financial Developer Relationship Specialty Start Date End Date Bro Lion MD PCP - General FAMILY PRACTICE 02/12/18 documented as of this encounter
== END 2024-05-03 08:48 | disposition home or self-care (01) ==
PROVIDERS: Emergency Provider Nurse Practitioner Family; PCP Family Medicine
DX: H66.92 Otitis media, unspecified, left ear (principal); I10 Essential (primary) hypertension; E78.5 Hyperlipidemia, unspecified; E78.00 Pure hypercholesterolemia, unspecified
CPT/HCPCS: 99213; G0463

== ENCOUNTER 2024-10-06 08:04 | Emergency (ER) | payer OTHER, SELFPAY ==
--- NOTE | 2024-10-06 08:06 | ED_ITS ---
HPI - Ear Problem General Chief complaint: Ear Stated complaint: ear infection Time Seen by Provider: 10/06/24 08:06 Source: patient Mode of arrival: ambulatory Limitations: no limitations History of Present Illness HPI Narrative: Edil is a 58 year old male patient presenting to the clinic today with c/o left ear pain x1 day. He reports sharp shooting pain in the ear. No fever, chills, or body aches. No recent swimming. Slight nasal congestion. Has been taking Tylenol/Motrin as needed for pain. Related Data Home Medications ?Medication ?Instructions ?Recorded ?Confirmed ?Last Taken ?Type metoprolol succinate 50 mg capsule 100 mg PO DAILY 12/09/19 10/29/23 07/15/22 History sprinkle, ext. release 24 hr rosuvastatin 40 mg tablet 40 mg PO DAILY 01/10/23 10/29/23 Unknown History Allergies Allergy/AdvReac Type Severity Reaction Status Date / Time No Known Allergies Allergy Unknown Verified 10/06/24 08:15 Review of Systems Review of Systems: Pertinent positives per HPI. Patient denies any fever, chills, rash, headache, visual changes, dizziness, cough, runny nose, sore throat, shortness of breath, chest pain, palpitations, nausea, vomiting, diarrhea, constipation, abdominal pain, or any urinary issues. [facility] Past Medical History Medical History (Updated 10/06/24 @ 08:17 by Pal Christensen APRN) Essential hypertension History of stress test Hyperlipidemia Adenomatous colon polyp (~10/29/22) Hypercholesteremia Hypertension Family History Family History Mother Hypertension Social History Social History Smoking status: Never smoker Alcohol intake: never Substance use: never Substance use type: does not use Do You Feel Safe in your Home?: Yes Lack of Transportation: No Lack of Food: Never True Current Housing: I Have Housing Concerned About Future Housing: No Difficulty Paying Gas/Electric Bills: No Difficulty Paying for Meds: No Currently Unemployed: No Education: Bachelor's Degree Difficulty w/ Childcare or Family Care: No Living arrangements: with family Gender identity (if verbalized by the patient): Male Spiritual care concerns: No Comments At the time of my signature, I reviewed and agree with the nursing past medical, surgical, social, and family history. There is no relevant family history pertinent to the patient complaint. Exam Narrative: General: Well-developed, well nourished, in no apparent distress Head: Normocephalic, atraumatic Eyes: Pupils equally round and reactive to light bilaterally, EOM intact, sclera and conjunctive clear, no discharge, lids normal Ears: Left TMs intact and clear, right TM intact, clear, mild bulging, tenderness to palpation or over the right eustachian tube, ear canals clear, no drainage, grossly hearing normal. Nose: Nares patent, clear nasal discharge, no inflammation, no sinus tenderness. Mouth: Oropharynx without lesions or masses, good dentition, MMM. Neck: Supple, trachea midline, no enlargement of anterior or posterior cervical nodes, no thyroid masses or goiter palpable. Cardio: Regular rate and rhythm, s1 and s2 normal, no murmur appreciated. Resp: Clear to auscultation bilaterally anteriorly and posteriorly, no rhonchi, rales, wheezing or rubs Course Course Emergency Course: Portions of this record may have been created with voice recognition software. Level of Care: Express Care Visit Vital Signs Vital signs: Vital Signs Temperature 36.2 C L 10/06/24 08:09 Pulse Rate 55 L 10/06/24 08:09 Respiratory Rate 16 10/06/24 08:09 Blood Pressure 131/88 10/06/24 08:09 Pulse Oximetry 99 10/06/24 08:09 Temperature 36.2 C L 10/06/24 08:09 Pulse Rate 55 L 10/06/24 08:09 Respiratory Rate 16 10/06/24 08:09 Blood Pressure 131/88 10/06/24 08:09 Pulse Oximetry 99 10/06/24 08:09 Vital signs reviewed Medical Decision Making MDM Narrative Medical decision making narrative: At the time of visit patient is resting comfortably on the exam table. Patient appears to be nontoxic. Patient is having right ear pain x1 day. No fevers, chills, body aches. Denies any recent swimming. A sharp shooting pain rates it an 8/10 currently. Has been taking Tylenol and Motrin as needed for pain. No sign of otitis media or otitis externa on exam. Mild bulging to the right TM with tenderness to palpation over the right eustachian tube. Plan: I suspect patient has right eustachian tube dysfunction. Prescription for prednisone was sent to the pharmacy. Risk and benefits of this medication was reviewed with the patient. Supportive measures were discussed with the patient and they voiced understanding discharge instructions and agrees to treatment plan. Return precautions reviewed Differential Diagnosis Differential Diagnosis: Otitis media, otitis externa, eustachian tube dysfunction, cerumen impaction, upper respiratory infection, serous otitis Vital Signs Vital Signs: Vital Signs Temperature 36.2 C L 10/06/24 08:09 Pulse Rate 55 L 10/06/24 08:09 Respiratory Rate 16 10/06/24 08:09 Blood Pressure 131/88 10/06/24 08:09 Pulse Oximetry 99 10/06/24 08:09 Temperature 36.2 C L 10/06/24 08:09 Pulse Rate 55 L 10/06/24 08:09 Respiratory Rate 16 10/06/24 08:09 Blood Pressure 131/88 10/06/24 08:09 Pulse Oximetry 99 10/06/24 08:09 Discharge Plan Discharge Clinical Impression: Acute dysfunction of right eustachian tube Patient Disposition: Home Condition: Stable Instructions: Antibiotic Form, Earache (ED) Additional Instructions: Take prescription medications only as prescribed-prednisone Increase fluids and stay well hydrated Tylenol/motrin for pain/fever Flonase and OTC antihistamines such as Zyrtec or Claritin as directed Go to the ED if you develop a worsening in your condition- high fever not controlled by Tylenol or Motrin, dehydration, weakness, lethargy, shortness of breath, or chest pain. Follow up with your PCP in 3-5 days if symptoms persist. Patient Language: Khmer Prescriptions: New prednisone 20 mg tablet 40 mg PO DAILY 5 Days Qty: 10 0RF No Action amoxicillin-pot clavulanate 875-125 mg tablet 1 tablet PO Q12H 7 Days Qty: 14 0RF metoprolol succinate 50 mg Capsule,Sprinkle,Er 24hr 100 mg PO DAILY rosuvastatin 40 mg tablet 40 mg PO DAILY Follow-up/Referrals: Ayad,Bro Ambriz MD [Primary Care Provider] - Time of Disposition: 08:18 Quality NIHSS Nursing Documentation ED NIHSS nursing documentation: reviewed/agree
--- OUTSIDE RECORDS SUMMARY | 2024-10-06 08:08 | XMS_ITS | Clinical Summary ---
Author Organization [facility] Address [address] [place] [address] Care Team Providers Care Assisted Living Home Director Name Role Phone Bro Lion MD Primary Care Provider [phone] Allergies No known active allergies Medications aspirin EC (ECOTRIN) 81 MG tabletIndicatio ns:Anticoagulan t Therapy Take 1 tablet (81 mg total) by mouth daily. 10/19/19 23 Active metoprolol succinate ER (TOPROL-XL) 50 MG 24 hr tablet Take 1 tablet (50 mg total) by mouth daily. 90 tablet 3 04/05/19 25 Active rosuvastatin (CRESTOR) 40 MG tablet Take 1 tablet (40 mg total) by mouth nightly at bedtime. at bedtime 90 tablet 3 04/05/19 25 Active nitroglycerin (NITROSTAT) 0.[address] 1 TABLET UNDER TONGUE EVERY 5 MINUTES NEEDED FOR CHEST PAIN MAX OF 3 DOSES IF TAKING 3RD DOSE CALL 911 25 tablet 06/26/19 25 Active traMADol (ULTRAM) 50 MG tabletIndicatio ns:Chronic Pain Take 1 tablet (50 mg total) by mouth every 6 (six) hours as needed. Indications: Chronic Pain 30 tablet 1 08/12/19 25 Active VIAGRA 100 MG tabletIndicatio ns:Erectile dysfunction, unspecified erectile dysfunction type Take 1 tablet (100 mg total) by mouth daily as needed for Erectile Dysfunction. 10 tablet 1 09/09/19 25 10/08/ 025 Active VIAGRA 100 MG tabletIndicatio ns:Erectile dysfunction, unspecified erectile dysfunction type Take 1 tablet (100 mg total) by mouth daily as needed for Erectile Dysfunction. 10 tablet 09/09/19 25 025 Discontinued Active Problems Problem Noted Date Diagnosed Date Lumbar radiculopathy 08/10/2024 ED (erectile dysfunction) 03/16/2024 Assessment & Plan (03/17/2024 1:08 PM COMMERCIAL FINANCE MANAGER): Trial of Viagra/sildenafil low-dose 25 mg 30 [...] that in the future. Paroxysmal atrial fibrillation ([facility]) 12/29/2022 Assessment & Plan (03/17/2024 1:10 PM COMMERCIAL FINANCE MANAGER): A-fib postoperatively after CABG. Asymptomatic and remaining sinus rhythm. Currently off amiodarone. Taking metoprolol as discussed. Assessment & Plan (01/19/2024 3:11 PM COMMERCIAL FINANCE MANAGER): Patient had A-fib postoperatively after CABG. Currently off amiodarone. Patient continues to do well. In sinus rhythm. Assessment & Plan (03/01/2023 1:00 PM COMMERCIAL FINANCE MANAGER): Had atrial fibrillation postoperatively after CABG. Discontinue [...] (< 1%). Coronary artery disease invo lving wainwright coronary artery of wainwright heart without angina pectoris 10/17/2022 Assessment & Plan (09/11/2024 7:18 AM CDT): He is not having angina and is status post CABG. Continue medical management of CAD with aspirin, rosuvastatin and metoprolol. Assessment & Plan (03/17/2024 1:09 PM COMMERCIAL FINANCE MANAGER): Status post CABG November 2022. Done with cardiac rehab and continues to do well and remains active. Continue aspirin, rosuvastatin and metoprolol as ordered compliantly. Low-cholesterol/salt diet. Stay active. Assessment & Plan (03/05/2024 2:22 PM COMMERCIAL FINANCE MANAGER): Status post CABG 11/2022. Patient is without [...] hours. Assessment & Plan (01/19/2024 3:10 PM COMMERCIAL FINANCE MANAGER): SP CABG. Patient continues to do well. [...] Rosuvastatin. Assessment & Plan (03/10/2023 11:59 AM COMMERCIAL FINANCE MANAGER): He is found to have significant coronary artery calcification seen on CT scan. I recommended he undergo functional testing with a nuclear stress test to determine the extent of his symptoms and whether or not he is having ischemia. I recommended he start metoprolol and increase atorvastatin. Assessment & Plan (03/01/2023 12:59 PM COMMERCIAL FINANCE MANAGER): He underwent cardiac catheterization that showed obstructive [...] 15. Assessment & Plan (05/15/2022 3:15 PM COMMERCIAL FINANCE MANAGER): So far patient is doing well. Tylenol [...] 12/21/2020 Assessment & Plan (01/19/2024 3:12 PM COMMERCIAL FINANCE MANAGER): Patient so far is doing well. Follow-up Ortho. Assessment & Plan (10/17/2022 4:09 PM CDT): Recommend PT. States he is going to see his orthopedic doctor, November 15. Assessment & Plan (05/15/2022 3:15 PM COMMERCIAL FINANCE MANAGER): Osteoarthritis of hips. So far doing well. [...] 04/12/2020 Assessment & Plan (04/12/2020 4:15 PM COMMERCIAL FINANCE MANAGER): Right ear pain resolved. Advised to continue [...] 2019 Assessment & Plan (05/15/2022 3:13 PM COMMERCIAL FINANCE MANAGER): He is due for his annual screening [...] 02/12/2018 Assessment & Plan (02/12/2018 4:49 PM COMMERCIAL FINANCE MANAGER): Productive hacking cough Cellulitis of external nose 06/25/2013 Hypertension 12/15/2012 Assessment & Plan (09/11/2024 7:18 AM CDT): Blood pressure is well controlled. Continue metoprolol. Assessment & Plan (03/17/2024 1:10 PM COMMERCIAL FINANCE MANAGER): BP is controlled. Normotensive. Continue metoprolol succinate 50 mg daily. More likely for CAD. Low-salt diet. Stay active. Assessment & Plan (01/19/2024 3:11 PM COMMERCIAL FINANCE MANAGER): Normotensive and controlled. Currently on metoprolol succinate [...] diet. Assessment & Plan (05/15/2022 3:13 PM COMMERCIAL FINANCE MANAGER): BP is controlled. Continue metoprolol succinate 50 mg daily and low cholesterol/salt diet. Exercise and stay active. Assessment & Plan (2020 1:48 PM CDT): Normotensive and well controlled. Continue metoprolol succinate 50 mg daily and low-cholesterol/salt diet. Stay active. Assessment & Plan (04/12/2020 4:15 PM COMMERCIAL FINANCE MANAGER): Normotensive. Continue metoprolol succinate 50 mg daily. [...] exercise. Assessment & Plan (02/12/2018 4:41 PM COMMERCIAL FINANCE MANAGER): Well-controlled. Furuncle 09/01/2012 Hyperlipidemia Assessment & Plan (09/11/2024 7:18 AM CDT): Continue rosuvastatin. Assessment & Plan (03/05/2024 2:23 PM COMMERCIAL FINANCE MANAGER): Last lipid panel with LDL of 58. Recent lipid panel is ordered through PCP. Continue rosuvastatin. Assessment & Plan (01/19/2024 3:11 PM COMMERCIAL FINANCE MANAGER): Lipids controlled. LFTs normal. Continue rosuvastatin 40 mg daily. Low- cholesterol diet. Stay active. Assessment & Plan (08/29/2023 11:54 AM CDT): Continue Rosuvastatin Assessment & Plan (03/10/2023 12:00 PM COMMERCIAL FINANCE MANAGER): Recommend increasing atorvastatin. Assessment & Plan (03/01/2023 12:59 PM COMMERCIAL FINANCE MANAGER): Continue rosuvastatin. Assessment & Plan (12/29/2022 10:59 AM CDT): Continue rosuvastatin. Assessment & Plan (10/20/2022 3:21 PM CDT): Will increase rosuvastatin to 40 mg daily. Advised to always stay on a strict low-cholesterol/carbohydrate/salt diet. We will get repeat lipids/LFTs in 3 weeks. Assessment & Plan (05/15/2022 3:13 PM COMMERCIAL FINANCE MANAGER): His recent lipid panel controlled with normal [...] month. Assessment & Plan (04/12/2020 4:15 PM COMMERCIAL FINANCE MANAGER): Patient lipid panel well controlled. LFTs normal. [...] 10/15/2022 Assessment & Plan (01/19/2024 3:12 PM COMMERCIAL FINANCE MANAGER): In good spirits. Well-controlled. He takes lorazepam very occasionally only and not to be abused. Assessment & Plan (05/15/2022 3:13 PM COMMERCIAL FINANCE MANAGER): In good spirits. He takes lorazepam as needed and very occasionally only and not to be abused. So far doing well. Assessment & Plan (2020 1:48 PM CDT): In good spirits. Well controlled. He takes lorazepam on a very as needed only he takes it very occasionally. Assessment & Plan (04/12/2020 4:16 PM COMMERCIAL FINANCE MANAGER): In good spirits. He has been taking [...] only. Assessment & Plan (02/12/2018 4:46 PM COMMERCIAL FINANCE MANAGER): In good spirits. Encounters Date Type Department Care Team Description 09/08/2024 Telephone [facility] [address] [place] [phone] Bro Lion MD Question 09/08/2024 Telephone [facility] [address] [place] [phone] Bro Lion MD Medication Request 09/03/2024 10:30 AM CDT Office Visit [facility] [address] [phone] Chip Nichols MD Coronary Artery Disease 09/03/2024 Travel 08/12/2024 10:20 AM CDT - 08/12/2024 10:40 AM CDT Surgery [facility] [place] [address] [id number] Dorita Culp MD INJECTION EPIDURAL LUMBAR INTERLAMINAR l45 08/12/2024 9:23 AM CDT - 08/12/2024 10:11 AM CDT Hospital Encounter [facility] [place] [address] [id number] Dorita Culp MD Discharge Disposition: Home or Self Care (Routine Discharge) 08/12/2024 Travel 08/10/2024 11:55 AM CDT - 08/10/2024 11:59 PM CDT Hospital Encounter [facility] [place] [address] [id number] Dorita Culp MD Discharge Disposition: Home or Self Care (Routine Discharge) 08/10/2024 Telephone [facility] [place] [address] [id number] Flaca Cruz RN Follow Up Call; Medication Request 08/10/2024 Travel 08/05/[address] [phone] Bro Lion MD Referral 07/08/[address] [phone] Bro Lion MD Medication Information from Last 3 Months Immunizations Immunization Administration Dates Next Due PFIZER COVID-19 (ORIGINAL [...] Sign Reading Time Taken Comments Blood Pressure 116/80 09/03/2024 10:30 AM CDT Pulse 51 09/03/2024 10:30 AM CDT Temperature 36.5 C (97.7 F) 08/12/2024 9:46 AM CDT Respiratory Rate 18 08/12/2024 10:06 AM CDT Oxygen Saturation 96% 08/12/2024 10:06 AM CDT Inhaled Oxygen Concentration - - Weight 85.7 kg (189 lb) 09/03/2024 10:30 AM CDT Height 182.9 cm (6') 09/03/2024 10:30 AM CDT Body Mass Index 25.63 09/03/2024 10:30 AM CDT Plan of Treatment Upcoming Encounters Date Type Department Care Team (Late st Contact Info) Description 03/04/2025 1:00 PM COMMERCIAL FINANCE MANAGER [facility] [address] [place] [phone] Brittani Gómez PA [address] [facility], [address] [place] [address] Health Maintenance Due Date Last Done Comments Annual Physical 12/25/1967 Hepatitis C 1982 Pneumococcal Vaccine: 50+ Years (1 of 2 - PCV) 12/25/1983 Zoster Vaccines (1 of 2) 2014 ASCVD LDL 11/13/2023 11/12/2022, 11/06/2022 COVID-19 Vaccine (4 - 2023-2 5 season) 2023 12/29/2020, 03/28/2020, 03/07/2020 PHQ-2 (Physician [place]) 03/17/2024 01/19/2024 DTaP, Tdap and Td Vaccines [...] this topic Medical Devices Implanted Type Area Marketing Program Coordinator Device Identifier Shelf Expiration Date Model / Serial / Lot Wire Sterum Suture Kit [employer] #7 03/18 Ccs-1 - [id number] Implanted:Qty: 1 on 11/20/2022 by Orville Douglas MD at [facility] Wire N/A: Sternum [employer] 10/15/2026 [id number] / / [id number] Description:2 Wires Implante d from 1 Package Wire Sternotomy Suture Kit - [id number] Implanted:Qty: 1 on 11/20/2022 by Orville Douglas MD at [facility] N/A: Sternum [employer] 04/17/2027 [id number] / / [id number] Description:5 Wires Implante d from 1 Package Procedures Procedure Name Priority Date/Time Associated Diagnosis Comments NJX INTERLAMINAR LMBR/SAC 08/12/2024 9:57 AM CDT Lumbar radiculopathy XR PAIN CLINIC C-ARM Today 08/12/2024 9:32 AM CDT LIPID PANEL Routine 11/12/2022 11:24 AM CDT COLONOSCOPY GENERIC (SCAN ORDER) 07/15/2022 from Last 3 Months or Most Recently Relevant to Health Maintenance Results * XR PAIN CLINIC C-ARM (08/12/2024 9:32 AM CDT) Narrative Radiology, Technologist - 08/12/2024 9:32 AM CDT This report does not contain a radiologist's interpretation. Please review associated procedure and/or operative report. Dorita Culp MD GENERAL IMAGING Final Result * (ABNORMAL) LIPID PANEL (11/12/2022 11:24 AM CDT) CHOLESTEROL 119 <200 MG/DL 02/21/2023 10:18 AM [facility] TRIGLYCERIDES 124 <150 MG/DL 02/21/2023 10:18 AM [facility] HDL 36(L) >40.0 MG/DL 02/21/2023 10:18 AM [facility] LDL (CALCULATED) 58 <100 MG/DL 02/22/20 10:18 AM [facility] NON HDL CHOLESTEROL 83 <130 MG/DL 02/21 10:18 AM [facility] Comment: NOTE: WHEN THE TRIGLYCERIDES ARE >200 mg/dL, NON HDL C IS A SECONDARY TARGET OF THERAPY, WITH A GOAL 30 mg/dL HIGHER THAN THE IDENTIFIED LDL C GOAL. CHOL/HDL RATIO 3.3 0.0 - 4.5 02/21/2023 10:18 AM [facility] VLDL CALCULATION 25 5 - 55 MG/DL 02/21/2023 10:18 AM [facility] LIPID INTERPRETATION 02/21/2023 10:18 AM [facility] Comment: NIH CONCENSUS REPORT RECOMMENDATIONS: ADULT CHILD LOW RISK: CHOLESTEROL <200 <170 TRIGLYCERIDE <150 --- HDL >=60 --- LDL <100 <110 BORDERLINE: CHOLESTEROL 200-239 170-199 TRIGLYCERIDE 150-199 --- HDL 40-59 --- LDL 100-159 110-129 HIGH RISK: CHOLESTEROL >=240 >=200 TRIGLYCERIDE >=200 --- HDL <40 --- LDL >=160 >=130 11/12/2022 11:2 4 AM CDT us Chip Nichols MD LABORATORY Final Resul t [facility] [address] [place] [address], [place] [phone] * COLONOSCOPY GENERIC (07/15/2022) 07/15/2022 us [facility] Scanned SCANNING Final Resu lt from Last 3 Months or Most Recently Relevant to Health Maintenance Insurance [employer] Advance Directives * Full Code (Latest Code Status on File) Date Activated Date Inactivated Comments 11/26/2022 4:57 PM 01/17/2023 11:32 AM Care Teams Assisted Living Home Director Relationship Specialty Start Date End Date Bro Lion MD PCP - General FAMILY PRACTICE 02/12/18
--- OUTSIDE RECORDS SUMMARY | 2024-10-06 08:08 | XMS_ITS | Encounter Summary ---
Author Organization [facility] Address [facility] [place] [address] Care Team Providers Care Electronics Commodity Manager Name Role Phone Bro Lion MD Primary Care Provider [phone] Encounter Details Date Type Department Care Team (Late Contact Info) Description 10/20/2023 Abstract [facility], [address] [place] [address] Debo Roth MA Social History Tobacco Use [...] Department Care Team (Late Contact Info) Description 03/04/2025 1:00 PM AUDIO VISUAL SPECIALIST [facility] [address] [place] [phone] Brittani Gómez PA [address] [facility], [address] [place] [address] documented as of this encounter Procedures Procedure [...] documented as of this encounter Care Teams Electronics Commodity Manager Relationship Specialty Start Date End Date Bro Lion MD PCP - General FAMILY PRACTICE 02/12/18 documented as of this encounter
--- OUTSIDE RECORDS SUMMARY | 2024-10-06 08:08 | XMS_ITS | Encounter Summary ---
Author Organization [facility] Address [facility] [place] [address] Care Team Providers Care Insights Analyst Name Role Phone Bro Lion MD Primary Care Provider [phone] Encounter Details Date Type Department Care Team (Late Contact Info) Description 11/06/2022 Abstract [facility], [address] [place] [address] Debo Roth MA Social History Tobacco Use [...] (Late Contact Info) Description 03/04/2025 1:00 PM ADVERTISING SALES AGENT [facility] [address] [place] [phone] Brittani Gómez PA [address] [facility], [address] [place] [address] documented as of this encounter Procedures Procedure [...] documented as of this encounter Care Teams Insights Analyst Relationship Specialty Start Date End Date Bro Lion MD PCP - General FAMILY PRACTICE 02/12/18 documented as of this encounter
[2024-10-06 08:09] VITALS: BP 131/88; PULSE 55; RESP 16; TEMP 36.2; O2SAT 99
== END 2024-10-06 08:22 | disposition home or self-care (01) ==
PROVIDERS: Emergency Provider Nurse Practitioner Family; PCP Family Medicine
DX: H69.91 Unspecified Eustachian tube disorder, right ear (principal); I10 Essential (primary) hypertension; E78.00 Pure hypercholesterolemia, unspecified
CPT/HCPCS: 99213; G0463

== ENCOUNTER 2024-12-28 09:27 | Day surgery (SDC) | payer OTHER, SELFPAY ==
[2024-12-14 13:53] VITALS: BMI 25.4
--- NOTE | ~2024-12-28 | XR_ITS ---
EXAMINATION: XR fluoroscopy no charge DATE: 12/28/2024 12:07 INDICATION: Left L4-L5 and L5-S1 transforaminal epidural steroid injection TECHNIQUE: 33 fluoroscopic images of the lumbar spine were obtained during procedure performed by Dr. Jeffery. Radiologist was not present for the imaging or procedure. The amount of fluoroscopy time used during this procedure was 1.0 minutes. Cumulative radiation dose of 21.26 mGy. COMPARISON: None. FINDINGS: Images demonstrate spinal needles advanced along the inferior margin of the left radicles of L4 and L5 to the posterior superior aspect of the bilateral neural foramina. Subsequent images demonstrate contrast injection which demonstrates perineural spread without evident intravascular or intrathecal contrast. IMPRESSION: 1. Fluoroscopy utilized during pain management procedure at the left side of the lower lumbar spine. See procedure note for further detail. Reviewed, dictated and finalized at location A. IMPRESSION: 1. Fluoroscopy utilized during pain management procedure at the left side of th e lower lumbar spine. See procedure note for further detail.
[2024-12-28 10:52] VITALS: BP 114/81; PULSE 60; RESP 18; TEMP 36.2; O2SAT 99; BMI 24.8
--- NOTE | 2024-12-28 11:30 | WPDHPUPDATE1 ---
History and Physical Update Update Date/Time: 12/28/24 11:30 History and Physical has been reviewed, including an updated exam of the patient. There are NO changes in the patient's condition. Risks, benefits, and alternatives have been discussed and questions answered. Patient agrees to proceed with procedure.
--- NOTE | 2024-12-28 11:31 | W.PM.PROC2 ---
Procedure Note - Detailed Date of Procedure 12/28/24 Pre-op Diagnosis Lumbosacral radiculopathy Post-op Diagnosis Same Procedure Performed Left Lumbar Transforaminal Epidural Steroid Injection under Fluoroscopic Guidance and with Contrast Control at L4-5, L5-S1. Surgeon Eldon Jeffery MD Anesthesia Local Description of Procedure INFORMED CONSENT: Risks, benefits and alternatives to the procedure were discussed in detail with the patient who expressed explicit understanding and consent to proceed. Patient was informed verbally and in written form regarding the risks associated with the procedure including the low risk of serious infection, bleeding/bruising, allergic reaction, nerve or organ injury, paralysis, procedural site pain or discomfort, worsening pain and/or mobility, failure to treat and/or disfigurement. The patient expressed explicit understanding and consent to proceed. All materials required for the procedure were available prior to procedure start. Site and side was marked prior to procedure and confirmed in the presence of the patient. PROCEDURE IN DETAIL: The patient was brought to the procedural suite and placed in the prone position. Patient was made comfortable with use of pillows under the head/chest, hips and ankles. Skin overlying the injection site was prepared broadly with ChloraPrep applicator and draped in a sterile manner. Aseptic technique was employed throughout. The endplates of the vertebral body at the site of interest were aligned in the AP view. Ipsilateral oblique angulation was utilized to better visualize the neuroforamen of interest. Local anesthesia was established by infiltration with approximately 5 mL of 0.5% PF lidocaine via a 1-1/2 inch 27-gauge needle. A 22-gauge 5.0 inch Yonatan (pencil point) spinal needle was advanced until the needle approached the 6 o'clock position on the pedicle just superior to the exiting nerve root. on the left at L4-5. Lateral view was utilized to confirm appropriate position of the needle tip within the superior and posterior portion of the respective foramen. In an AP view, 1 mL of Omnipaque 300 contrast medium was injected after negative aspiration for CSF, blood or other bodily fluid, showing appropriate neurogram without evidence of intravascular or intrathecal spread of contrast. Digital subtraction imaging was used with an additional 1ml of the same contrast medium to confirm absence of intravascular contrast spread. A 1mL solution containing of 5 mg of dexamethasone was injected after negative repeat aspiration. Appropriate spread of the injectate was confirmed with washout of previously injected contrast. No parasthesias were elicited. Needle was removed completely intact without difficulty. The same exact procedure was repeated for all remaining levels on the ipsilateral side, left L5-S1 neuroforamen, modified as necessary to accommodate for the new target location with identical findings and results and no evidence of complication. Images were saved and documented in the patient chart. Patient's skin was cleaned and sterile bandage applied. The patient tolerated the procedure well. The patient was transported to the recovery area in stable condition where they were observed for an appropriate amount of time prior to discharge, without evidence of complication. The patient was instructed to avoid excessive activity for the next 48 hours, including climbing and frequent use of stairs. Showers only for 48 hours. They were instructed not to drive or operate heavy machinery for 24 hours. They are to monitor for severe headaches, fevers, chills, night sweats, erythema/swelling at the site or any other signs of infection, bleeding/bruising, bowel or bladder changes as well as new pain, weakness or numbness in the upper or lower extremity. Should they notice these changes, they are instructed to call our office immediately or report directly to the nearest Emergency Department if no answer or if after posted office hours. COMPLICATIONS: None COMMENTS: None CONTRAST WASTED: 26 mL Omnipaque 300. Complications No immediate complications Condition Stable Disposition Same day [facility] Billing Surgery - Charge Forward: Surgery Billing
[2024-12-28 11:45] VITALS: BP 120/75; PULSE 55; RESP 12; O2SAT 98
[2024-12-28] MEDS: LIDOCAINE 2% PF LOCAL INJ 5 ML VIAL (11:49)
[2024-12-28] MEDS: DEXAMETHASONE SODIUM PHOSP/PF 10 MG/ML 1 ML VIAL (11:49)
[2024-12-28 11:53] VITALS: BP 120/76; PULSE 56; RESP 15; O2SAT 95
[2024-12-28 11:59] VITALS: BP 121/76; PULSE 60; RESP 14; O2SAT 96
[2024-12-28 12:03] VITALS: BP 119/88; PULSE 56; RESP 18; O2SAT 100
== END 2024-12-28 12:18 | disposition home or self-care (01) ==
PROVIDERS: Visit Provider Anesthesiology Pain Medicine
PROC: (CPT 64483; principal; 2024-12-28 11:30)
DX: M54.17 Radiculopathy, lumbosacral region (principal)
CPT/HCPCS: 64483; 64484; 99199

== ENCOUNTER 2025-01-24 07:22 | Day surgery (SDC) | payer OTHER, SELFPAY ==
--- NOTE | ~2025-01-24 | XR_ITS ---
EXAMINATION: XR fluoroscopy no charge DATE: 01/24/2025 10:25 INDICATION: Left intra-articular sacroiliac joint injection TECHNIQUE: 5 fluoroscopic images of the left sacroiliac joint were obtained during pain management procedure performed by Dr. Jeffery. Radiologist was not present for the imaging or procedure. The amount of fluoroscopy time used during this procedure was 0.3 minutes. The cumulative radiation dose was 3.93 mGy. COMPARISON: None. FINDINGS/IMPRESSION: Images demonstrate spinal needle positioned in the left sacroiliac joint. See procedure note for further detail. Reviewed, dictated and finalized at location A. ING MACHINE TECHNICIAN
--- NOTE | 2025-01-24 06:30 | WPDHPUPDATE1 ---
History and Physical Update Update Date/Time: 01/24/25 06:30 History and Physical has been reviewed, including an updated exam of the patient. There are NO changes in the patient's condition. Risks, benefits, and alternatives have been discussed and questions answered. Patient agrees to proceed with procedure.
--- NOTE | 2025-01-24 06:31 | P.OP_ITS ---
Procedure Note - Detailed Date of Procedure 01/24/25 Pre-op Diagnosis Sacroiliitis Post-op Diagnosis Same Procedure Performed Left Sacroiliac Joint Steroid Injection under Fluoroscopic Guidance and with Contrast Control. Surgeon Eldon Jeffery MD Office Electrician None Anesthesia Local Description of Procedure INFORMED CONSENT: Risks, benefits and alternatives to the procedure were discussed in detail with the patient who expressed explicit understanding and consent to proceed. Patient was informed verbally and in written form regarding the risks associated with the procedure including the low risk of serious infection, bleeding/bruising, allergic reaction, nerve or organ injury, paralysis, procedural site pain or discomfort, worsening pain and/or mobility, failure to treat and/or disfigurement. The patient expressed explicit understanding and consent to proceed. All materials required for the procedure were available prior to procedure start. Site and side were marked prior to procedure and confirmed in the presence of the patient. PROCEDURE IN DETAIL: The patient was brought to the procedural suite and placed in the prone position. Patient was made comfortable with use of pillows under the head/chest, hips and ankles. Skin overlying the injection site on the affected side(s) was prepared broadly with ChloraPrep applicator and draped in a sterile manner. Aseptic technique was used throughout. The left SI joint was identified in the AP view and contralateral oblique angulation with caudal tilt was utilized to optimize visualization of the inferior and medial joint line representing the posterior portion of the joint. Local anesthesia was established by infiltration with approximately 5 mL of 2% lidocaine via a 1-1/2 inch 27-gauge needle. A 22-gauge 3.5 inch Quincke spinal needle was advanced until the needle entered the inferior third of the joint space approximately 1cm cephalad from its most inferior point. In the AP view, 0.5 mL of Omnipaque 300 contrast medium was injected after negative aspiration for CSF, blood or other bodily fluid, showing appropriate intra-articular spread of contrast without evidence of intravascular, perineural or intrathecal placement. A 1.5 mL solution containing 10 mg of dexamethasone in 0.5% PF bupivacaine was injected after repeat negative aspiration. Appropriate spread of the injectate was confirmed with washout of previous injected contrast. No parasthesias were elicited. Needle was removed completely intact without difficulty. Images were saved and documented in the patient chart. Patient's skin was cleansed and sterile bandage applied. The patient tolerated the procedure well. The patient was transported to the recovery area in stable condition where they were observed for an appropriate amount of time prior to discharge, without evidence of complication. The patient was instructed to avoid excessive activity for the next 48 hours, including climbing and frequent use of stairs. Showers only for 48 hours. They were instructed not to drive or operate heavy machinery for 24 hours. They are to monitor for severe headaches, fevers, chills, night sweats, erythema/swelling at the site or any other signs of infection, bleeding/bruising, bowel or bladder changes as well as new pain, weakness or numbness in the upper or lower extremity. Should they notice these changes, they are instructed to call our office immediately or report directly to the nearest Emergency Department if no answer or if after posted office hours. COMPLICATIONS: None COMMENTS: None CONTRAST WASTED: 29.5mL Omnipaque 300. Complications No immediate complications Condition Stable Disposition Same day [facility] Billing Surgery - Charge Forward: Surgery Billing
[2025-01-24 08:07] VITALS: BP 114/92; PULSE 53; RESP 16; TEMP 36.7; O2SAT 100
[2025-01-24 08:31] VITALS: BP 137/77; PULSE 54; RESP 14; O2SAT 99
[2025-01-24] MEDS: DEXAMETHASONE SODIUM PHOSP/PF 10 MG/ML 1 ML VIAL (08:34)
[2025-01-24 08:35] VITALS: BP 127/83; PULSE 50; RESP 15; O2SAT 97
[2025-01-24] MEDS: BUPivacaine HCL 0.5% 10 ML AMP ×2 (08:35)
[2025-01-24 08:39] VITALS: BP 124/94; PULSE 54; RESP 14; RESP 16; O2SAT 100
== END 2025-01-24 08:58 | disposition home or self-care (01) ==
LOC: ASC 07:23
PROVIDERS: PCP Family Medicine; Visit Provider Anesthesiology Pain Medicine
PROC: (CPT 27096; principal; 2025-01-24 08:20)
DX: M46.1 Sacroiliitis, not elsewhere classified (principal)
CPT/HCPCS: 27096; 99199; G0260

== ENCOUNTER 2025-02-16 12:14 | Outpatient (CLI) | payer OTHER, SELFPAY ==
--- NOTE | ~2025-02-16 | XR_ITS ---
XR lumbar spine 6V w bending Indication: M47.816 - Spondylosis without myelopathy or radiculopathy... Comparison: None Findings: No fracture, no subluxation with flexion-extension. The disc heights are intact. Soft tissues unremarkable Impression: No acute abnormality. Reviewed, dictated and finalized at location P. ERN CLERK Impression: No acute abnormality.
--- NOTE | ~2025-02-16 | XR_ITS ---
EXAMINATION: XR sacrum coccyx min 2V, 02/16/2025 12:28 [employer] HISTORY: M46.1 - Sacroiliitis, not elsewhere classified COMPARISON: No comparisons available. Findings: No acute fracture or malalignment. No significant sclerosis of the sacroiliac joints, with no bridging osteophyte formation or erosions are identified. Soft tissues unremarkable. Impression: No acute fracture or malalignment. Reviewed, dictated and finalized at location P. TRAMMER Impression: No acute fracture or malalignment.
--- OUTSIDE RECORDS SUMMARY | 2025-02-16 13:29 | XMS_ITS | Encounter Summary ---
Author Organization [facility] Address [facility] [place] [address] Care Team Providers Care Gas Inspector Name Role Phone Bro Lion MD Primary Care Provider [phone] Encounter Details Date Type Department Care Team (Late Contact Info) Description 11/06/2022 Abstract [facility] [facility] [place] [address] Debo Roth MA Social History Tobacco Use [...] (Late Contact Info) Description 03/04/2025 1:00 PM PHYSICIAN OFFICE ASSISTANT [facility] [address] [place] [id number] Brittani Gómez PA [address] [facility], [address] [place] [address] documented as of this encounter Procedures Procedure [...] documented as of this encounter Care Teams Gas Inspector Relationship Specialty Start Date End Date Bro Lion MD PCP - General FAMILY PRACTICE 02/12/18 documented as of this encounter
--- OUTSIDE RECORDS SUMMARY | 2025-02-16 13:29 | XMS_ITS | Encounter Summary ---
Author Organization [facility] Address [facility] [place] [address] Care Team Providers Care Career Consultant Name Role Phone Bro Lion MD Primary Care Provider [phone] Encounter Details Date Type Department Care Team (Late Contact Info) Description 10/20/2023 Abstract [facility] [facility], [address] [place] [address] Debo Roth MA Social History Tobacco Use [...] (Late Contact Info) Description 03/04/2025 1:00 PM CROSSING GUARD [facility] [address] [place] [phone] Brittani Gómez PA [address] [facility], [address] [place] [address] documented as of this encounter Procedures Procedure [...] documented as of this encounter Care Teams Career Consultant Relationship Specialty Start Date End Date Bro Lion MD PCP - General FAMILY PRACTICE 02/12/18 documented as of this encounter
--- OUTSIDE RECORDS SUMMARY | 2025-02-16 13:29 | XMS_ITS | Clinical Summary ---
Author Organization [facility] Address [address] [place] [address] Care Team Providers Care Book Binder Name Role Phone Bro Lion MD Primary Care Provider [phone] Allergies No known active allergies Medications aspirin EC (ECOTRIN) 81 MG tabletIndicatio ns:Anticoagulan t Therapy Take 1 tablet (81 mg total) by mouth daily. 10/18/2022 Active metoprolol succinate ER (TOPROL-XL) 50 MG 24 hr tablet Take 1 tablet (50 mg total) by mouth daily. 90 tablet 3 04/05/2024 Active rosuvastatin (CRESTOR) 40 MG tablet Take 1 tablet (40 mg total) by mouth nightly at bedtime. at bedtime 90 tablet 3 04/05/2024 Active nitroglycerin (NITROSTAT) 0.[address] 1 TABLET UNDER TONGUE EVERY 5 MINUTES NEEDED FOR CHEST PAIN MAX OF 3 DOSES IF TAKING 3RD DOSE CALL 911 25 tablet 06/25/2024 Active traMADol (ULTRAM) 50 MG tabletIndicatio ns:Chronic Pain Take 1 tablet (50 mg total) by mouth every 6 (six) hours as needed. Indications: Chronic Pain 30 tablet 1 08/11/2024 Active Active Problems Problem Noted Date Diagnosed Date Lumbar radiculopathy 08/10/2024 ED (erectile dysfunction) 03/16/2024 Assessment & Plan (03/17/2024 1:08 PM DYNAMOMETER TUNER): Trial of Viagra/sildenafil low-dose 25 mg 30 [...] that in the future. Paroxysmal atrial fibrillation 12/29/2022 Assessment & Plan (03/17/2024 1:10 PM DYNAMOMETER TUNER): A-fib postoperatively after CABG. Asymptomatic and remaining sinus rhythm. Currently off amiodarone. Taking metoprolol as discussed. Assessment & Plan (01/19/2024 3:11 PM DYNAMOMETER TUNER): Patient had A-fib postoperatively after CABG. Currently off amiodarone. Patient continues to do well. In sinus rhythm. Assessment & Plan (03/01/2023 1:00 PM DYNAMOMETER TUNER): Had atrial fibrillation postoperatively after CABG. Discontinue [...] (< 1%). Coronary artery disease invo lving [place] coronary artery of [place] heart without angina pectoris 10/17/2022 Assessment & Plan (09/11/2024 7:18 AM CDT): He is not having angina and is status post CABG. Continue medical management of CAD with aspirin, rosuvastatin and metoprolol. Assessment & Plan (03/17/2024 1:09 PM DYNAMOMETER TUNER): Status post CABG November 2022. Done with cardiac rehab and continues to do well and remains active. Continue aspirin, rosuvastatin and metoprolol as ordered compliantly. Low-cholesterol/salt diet. Stay active. Assessment & Plan (03/05/2024 2:22 PM DYNAMOMETER TUNER): Status post CABG 11/2022. Patient is without [...] hours. Assessment & Plan (01/19/2024 3:10 PM DYNAMOMETER TUNER): SP CABG. Patient continues to do well. [...] Rosuvastatin. Assessment & Plan (03/10/2023 11:59 AM DYNAMOMETER TUNER): He is found to have significant coronary artery calcification seen on CT scan. I recommended he undergo functional testing with a nuclear stress test to determine the extent of his symptoms and whether or not he is having ischemia. I recommended he start metoprolol and increase atorvastatin. Assessment & Plan (03/01/2023 12:59 PM DYNAMOMETER TUNER): He underwent cardiac catheterization that showed obstructive [...] 15. Assessment & Plan (05/15/2022 3:15 PM DYNAMOMETER TUNER): So far patient is doing well. Tylenol [...] 12/21/2020 Assessment & Plan (01/19/2024 3:12 PM DYNAMOMETER TUNER): Patient so far is doing well. Follow-up Ortho. Assessment & Plan (10/17/2022 4:09 PM CDT): Recommend PT. States he is going to see his orthopedic doctor, November 15. Assessment & Plan (05/15/2022 3:15 PM DYNAMOMETER TUNER): Osteoarthritis of hips. So far doing well. [...] 04/12/2020 Assessment & Plan (04/12/2020 4:15 PM DYNAMOMETER TUNER): Right ear pain resolved. Advised to continue [...] 2019 Assessment & Plan (05/15/2022 3:13 PM DYNAMOMETER TUNER): He is due for his annual screening [...] 02/12/2018 Assessment & Plan (02/12/2018 4:49 PM DYNAMOMETER TUNER): Productive hacking cough Cellulitis of external nose 06/25/2013 Hypertension 12/15/2012 Assessment & Plan (09/11/2024 7:18 AM CDT): Blood pressure is well controlled. Continue metoprolol. Assessment & Plan (03/17/2024 1:10 PM DYNAMOMETER TUNER): BP is controlled. Normotensive. Continue metoprolol succinate 50 mg daily. More likely for CAD. Low-salt diet. Stay active. Assessment & Plan (01/19/2024 3:11 PM DYNAMOMETER TUNER): Normotensive and controlled. Currently on metoprolol succinate [...] diet. Assessment & Plan (05/15/2022 3:13 PM DYNAMOMETER TUNER): BP is controlled. Continue metoprolol succinate 50 mg daily and low cholesterol/salt diet. Exercise and stay active. Assessment & Plan (2020 1:48 PM CDT): Normotensive and well controlled. Continue metoprolol succinate 50 mg daily and low-cholesterol/salt diet. Stay active. Assessment & Plan (04/12/2020 4:15 PM DYNAMOMETER TUNER): Normotensive. Continue metoprolol succinate 50 mg daily. [...] exercise. Assessment & Plan (02/12/2018 4:41 PM DYNAMOMETER TUNER): Well-controlled. [place]cle 09/01/2012 Hyperlipidemia Assessment & Plan (09/11/2024 7:18 AM CDT): Continue rosuvastatin. Assessment & Plan (03/05/2024 2:23 PM DYNAMOMETER TUNER): Last lipid panel with LDL of 58. Recent lipid panel is ordered through PCP. Continue rosuvastatin. Assessment & Plan (01/19/2024 3:11 PM DYNAMOMETER TUNER): Lipids controlled. LFTs normal. Continue rosuvastatin 40 mg daily. Low- cholesterol diet. Stay active. Assessment & Plan (08/29/2023 11:54 AM CDT): Continue Rosuvastatin Assessment & Plan (03/10/2023 12:00 PM DYNAMOMETER TUNER): Recommend increasing atorvastatin. Assessment & Plan (03/01/2023 12:59 PM DYNAMOMETER TUNER): Continue rosuvastatin. Assessment & Plan (12/29/2022 10:59 AM CDT): Continue rosuvastatin. Assessment & Plan (10/20/2022 3:21 PM CDT): Will increase rosuvastatin to 40 mg daily. Advised to always stay on a strict low-cholesterol/carbohydrate/salt diet. We will get repeat lipids/LFTs in 3 weeks. Assessment & Plan (05/15/2022 3:13 PM DYNAMOMETER TUNER): His recent lipid panel controlled with normal [...] month. Assessment & Plan (04/12/2020 4:15 PM DYNAMOMETER TUNER): Patient lipid panel well controlled. LFTs normal. [...] 10/15/2022 Assessment & Plan (01/19/2024 3:12 PM DYNAMOMETER TUNER): In good spirits. Well-controlled. He takes lorazepam very occasionally only and not to be abused. Assessment & Plan (05/15/2022 3:13 PM DYNAMOMETER TUNER): In good spirits. He takes lorazepam as needed and very occasionally only and not to be abused. So far doing well. Assessment & Plan (2020 1:48 PM CDT): In good spirits. Well controlled. He takes lorazepam on a very as needed only he takes it very occasionally. Assessment & Plan (04/12/2020 4:16 PM DYNAMOMETER TUNER): In good spirits. He has been taking [...] only. Assessment & Plan (02/12/2018 4:46 PM DYNAMOMETER TUNER): In good spirits. Encounters Date Type Department Care Team Description 12/10/2024 Telephone [facility] [facility], [address] [address] Chip Nichols MD Surgical Clearance from Last 3 Months Immunizations Immunization Administration [...] st Contact Info) Description 03/04/2025 1:00 PM DYNAMOMETER TUNER [facility] [address] [place] [phone] Brittani Gómez PA [address] [facility], [address] [place] [address] Health Maintenance Due Date Last Done Comments Annual Physical 12/25/1967 Hepatitis C 1982 Pneumococcal Vaccine: 50+ Years (1 of 2 - PCV) 12/25/1983 Zoster Vaccines (1 of 2) 2014 ASCVD LDL 11/13/2023 11/12/2022, 11/06/2022 PHQ-2 (Physician [place]) 03/17/2024 01/19/2024 COVID-19 Vaccine (4 - 2024-2 6 season) 2024 12/29/2020, 03/28/2020, 03/07/2020 Influenza Adult (#1) 2024 RSV Immunization or 60+ Years (1 - Risk 60-74 years 1-dose series) 2024 DTaP, Tdap and Td Vaccines ( 2 - Td or Tdap) 11/16/2030 11/16/2020 Colorectal Cancer Screening Colonoscopy (10 Years) 07/15/2032 07/15/2022 Hepatitis A Vaccines Aged Out No long er eligible based on patient's age to complete this topic Meningococcal B Vaccine Aged Out No l onger eligible based on patient's age to complete this topic Meningococcal Vaccine Aged Out No chava reynold eligible based on patient's age to complete this topic RSV Immunizations Under 20 Months Aged Out No longer eligible b ased on patient's age to complete this topic Medical Devices Implanted Type Area Lumber Scaler Device Identifier Shelf Expiration Date Model / Serial / Lot Wire Sterum Suture Kit [employer] #7 1/2 Ccs-1 - [id number] Implanted:Qty: 1 on 11/20/2022 by rOville Douglas MD at [facility] Wire N/A: Sternum A[employer] Wiper 10/15/2026 [id number] / / [id number] Description:2 Wires Implante d from 1 Package Wire Sternotomy Suture Kit - [id number] Implanted:Qty: 1 on 11/20/2022 by Orville Douglas MD at [facility] N/A: Sternum [employer] 04/17/2027 [id number] / / [id number] Description:5 Wires Implante d from 1 Package Procedures Procedure Name Priority Date/Time Associated Diagnosis Comments LIPID PANEL Routine 11/12/2022 11:24 AM CDT COLONOSCOPY GENERIC (SCAN ORDER) 07/15/2022 from Last 3 Months or Most Recently Relevant to Health Maintenance Results * (ABNORMAL) LIPID PANEL (11/12/2022 11:24 AM CDT) CHOLESTEROL 119 <200 MG/DL 02/21/2023 10:18 AM [facility] TRIGLYCERIDES 124 <150 MG/DL 02/21/2023 10:18 AM [facility] HDL 36(L) >40.0 MG/DL 02/21/2023 10:18 AM [facility] LDL (CALCULATED) 58 <100 MG/DL 02/22/20 10:18 AM [facility] NON HDL CHOLESTEROL 83 <130 MG/DL 02/21 10:18 AM [facility] Comment: NOTE: WHEN THE TRIGLYCERIDES ARE >200 mg/dL, NON HDL C IS A SECONDARY TARGET OF THERAPY, WITH A GOAL 30 mg/dL HIGHER THAN THE IDENTIFIED LDL C GOAL. CHOL/HDL RATIO 3.3 0.0 - 4.5 02/21/2023 10:18 AM [facility] VLDL CALCULATION 25 5 - 55 MG/DL 02/21/2023 10:18 AM DYNAMOMETER TUNER [facility] LIPID INTERPRETATION 02/21/2023 10:18 AM [facility] Comment: NIH CONCENSUS REPORT RECOMMENDATIONS: ADULT CHILD LOW RISK: CHOLESTEROL <200 <170 TRIGLYCERIDE <150 --- HDL >=60 --- LDL <100 <110 BORDERLINE: CHOLESTEROL 200-239 170-199 TRIGLYCERIDE 150-199 --- HDL 40-59 --- LDL 100-159 110-129 HIGH RISK: CHOLESTEROL >=240 >=200 TRIGLYCERIDE >=200 --- HDL <40 --- LDL >=160 >=130 11/12/2022 11:2 4 AM CDT Chip Nichols MD LABORATORY Final Resul t [facility] [address] [place] [address], * COLONOSCOPY GENERIC (07/15/2022) 07/15/2022 [facility] Scanned SCANNING Final Resu lt from Last 3 Months or Most Recently Relevant to Health Maintenance Insurance [facility] Advance Directives * Full Code (Latest Code Status on File) Date Activated Date Inactivated Comments 11/26/2022 4:57 PM 01/17/2023 11:32 AM Care Teams Book Binder Relationship Specialty Start Date End Date Bro Lion MD PCP - General FAMILY PRACTICE 02/12/18
== END 2025-02-16 12:15 | disposition home or self-care (01) ==
PROVIDERS: PCP Family Medicine; Visit Provider Nurse Practitioner Adult Health
DX: M47.816 Spondylosis without myelopathy or radiculopathy, lumbar region (principal); M48.061 Spinal stenosis, lumbar region without neurogenic claudication; M46.1 Sacroiliitis, not elsewhere classified
CPT/HCPCS: 72114; 72220

== ENCOUNTER 2025-02-19 10:00 | Outpatient (CLI) | payer OTHER, SELFPAY ==
--- NOTE | ~2025-02-19 | MR_ITS ---
EXAMINATION: MR lumbar spine wo con DATE: 02/19/2025 11:06 INDICATION: Radiculopathy, lumbar region. TECHNIQUE: Magnetic resonance imaging (MRI) of the lumbar spine was performed without intravenous contrast. COMPARISON: Lumbar spine MRI 01/09/2023 FINDINGS: There is 8 degrees levocurvature of lumbar spine. There is 3 mm retrolisthesis of L2 on L3. Vertebral body heights are normal. There is mildly decreased disc height at L2-L3, L3-L4, and L4-L5. The distal spinal cord signal intensity is normal. The conus medullaris is at L1. The following disc levels are specifically discussed: L1-L2: The disc does not extend beyond the endplate margin. There is moderate right and mild left facet joint osteoarthritis. There is no neural foraminal stenosis. There is no central canal stenosis. L2-L3: The disc is bulging and has an annular fissure. There is mild bilateral facet joint osteoarthritis. There is moderate right and mild left neural foraminal stenosis. There is mild central canal stenosis. L3-L4: The disc is bulging and has an annular fissure. There is mild bilateral facet joint osteoarthritis. There is moderate right and mild left neural foraminal stenosis. There is mild central canal stenosis. L4-L5: The disc is bulging and has an annular fissure. There is moderate right and severe left facet joint osteoarthritis. There is mild right and moderate left neural foraminal stenosis. There is mild central canal stenosis. There is severe stenosis of left lateral recess. L5-S1: The disc is bulging and has an annular fissure. There is severe bilateral facet joint osteoarthritis. There is mild bilateral neural foraminal stenosis. There is mild central canal stenosis. IMPRESSION: 1. Moderate lumbar spondylosis, stable from 01/09/2023. Reviewed, dictated and finalized at location E. [employer]
== END 2025-02-19 10:01 | disposition home or self-care (01) ==
PROVIDERS: PCP Family Medicine; Visit Provider Nurse Practitioner Adult Health
DX: M54.16 Radiculopathy, lumbar region (principal); M47.816 Spondylosis without myelopathy or radiculopathy, lumbar region; M48.061 Spinal stenosis, lumbar region without neurogenic claudication
CPT/HCPCS: 72148